=== PATIENT | male | born 1950 | race Caucasian/White ===

== ENCOUNTER 2017-10-06 17:44 | Inpatient (IN) | payer MEDICARE, MEDICAID ==
--- NOTE | 2017-10-06 18:22 | ED Physician Chart ---
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 Pain, A/N/V/D/C, chills, or urinary s/s Allergies:: Allergies Allergy/AdvReac Type Severity Reaction Status Date / Time Penicillins [PCN] Allergy Verified 10/06/17 17:59 Vitals:: Vital Signs - 8 hr 10/06/17 18:00 Temp 100.8 F HR 90 RR 16 BP 115/73 O2 Sat % 96 Historian:: Patient, EMS Review:: Nurse's Note Reviewed, Old Chart Reviewed, EMS run form Reviewed, Transfer documents Reviewed ED Review of Systems - Review of Systems General/Constitutional: Fever, Chills, No weight loss, Weakness, No diaphoresis , No edema, No loss of appetite Skin: No skin lesions, No rash, No bruising Head: No headache, No light-headedness Eyes: No loss of vision, No pain, No diplopia ENT: No earache, Nasal drainage, No sore throat, No tinnitus Neck: No neck pain, No swelling, No thyromegaly, No stiffness, No mass noted Cardio Vascular: No chest pain, No palpitations, No PND, No orthopnea, No edema Pulmonary: No SOB, Cough, No sputum, No wheezing GI: No nausea, No vomiting, No diarrhea, No pain, No melena, No hematochezia, No constipation, No hematemesis G/U: No dysuria, No frequency, No hematuria Musculoskeletal: Bone or joint pain, No back pain, Muscle pain Endocrine: No polyuria, No polydipsia Psychiatric: No prior psych history, No depression, No anxiety, No suicidal ideation, No homicidal ideation, No auditory hallucination, No visual hallucination Hematopoietic: No bruising, No lymphadenopathy Allergic/Immuno: No urticaria, No angioedema Neurological: No syncope, Focal symptoms, Weakness, Paresthesia, Headache, No seizure, No dizziness, Confusion, No vertigo ED Past Medical History - Past Medical History Obtainable: Yes Past Medical History: HTN, DM, Dementia, Other (BPH; HIV) Family History: Diabetes Melitus, HTN Social History: Non Smoker, No Alcohol, No Drug Use, Single, Care Facility Surgical History: other (Ventral Shunt) Psychiatricy History: Dementia Medication: Reviewed ED Physical Exam - Physical Examination General/Constitutional: Awake, Well-developed, well-nourished, Alert, No distress, GCS 15, Non-toxic appearing, Ambulatory Head: Atraumatic Eyes: Lids, conjuctiva normal, PERRL, EOMI Skin: Nl inspection, No rash, No skin lesions, No ecchymosis, Well hydrated, No lymphadenopathy ENMT: External ears, nose nl, TM canals nl, Nasal exam nl, Lips, teeth, gums nl , Oropharynx nl, Tonsils nl Neck: Nontender, Full ROM w/o pain, No JVD, No nuchal rigidity, No bruit, No mass, No stridor Respiratory: Nl effort/Exclusion Other Respiratory comments:: Lungs: + Rales and Rhonchi; R>L Cardio Vascular: RRR, No murmur, gallop, rubs, NL S1 S2, Carotid/Femoral/Distal pulses equal bilaterally GI: No tenderness/rebounding/guarding, No organomegaly, No hernia, Normal BS's, Nondistended, No mass/bruits, No McBurney tenderness : No CVA tenderness Extremities: No tenderness or effusion, Full ROM, normal strength in all extremities, No edema, Normal digits & nails Neuro/Psych: Alert/oriented, DTR's symmetric, Normal sensory exam, Normal motor strength, Judgement/insight normal, Mood normal, Normal gait, No focal deficits Misc: Normal back, No paraspinal tenderness ED Labs/Radiology/EKG Results - Radiology Results Comments:: CXR: RLL Infiltrate ED Septic Shock - . Is Septic Shock (SBP<90, OR Lactate>4 mmol\L) present?: No - <6hrs of presentation: Vital Signs: Vital Signs - 8 hr 10/06/17 18:00 Temp 100.8 F HR 90 RR 16 BP 115/73 O2 Sat % 96 ED Reassessment (Disposition) - Reassessment Reassessment Condition:: Improved - Diagnosis Diagnosis:: Dx: Cough/Congestion; Fever; Pneumonia; Sepsis - Aftercare/Follow up Instructions Aftercare/Follow-Up Instructions:: Counseled pt regarding lab results/diagnosis & need follow up, Counseled pt & family regarding lab results/diagnosis & need follow up - Patient Disposition Discharge/Transfer:: Acute Care w/in this hosp Accepting Physician:: Dr. Cleary Time Called:: 1829 Time Responded:: 18:30 Admitted to:: Med/Surg Spoke to:: Dr. Cleary Admitting Medical Physician:: Dr. Cleary Condition at Disposition:: Stable, Improved
[2017-10-06] MEDS ORDERED: Sodium Chloride 0.9% 1,000 ML IV ONE (18:24)
[2017-10-06] MEDS ORDERED: Levofloxacin 500mg/100mL 500 MG/100 ML BAG IV ONE ×2 (18:32→18:48)
[2017-10-06 18:54] LABS: HEMATOCRIT 26.7 % (41.0-60); MEAN CELL VOLUME 101.8 fl (80-99); MEAN CORPUSCULAR HEMOGLOBIN 34.2 pg (27.0-31.0); MEAN CORPUSCULAR HGB CONC 33.6 pg (28.0-36.0); MEAN PLATELET VOLUME 6.4 fl; PLATELET COUNT 311 Th/cmm (150-400); RED BLOOD COUNT 2.62 Mil/cmm (3.80-5.80); RED CELL DISTRIBUTION WIDTH 16.7 % (11.5-20.0)
[2017-10-06 19:14] LABS: CHOLESTEROL 94 mg/dL (<200); TRIGLYCERIDES 74 mg/dL (<150)
[2017-10-06 19:16] LABS: ALB/GLOB RATIO 0.8 (1.0-1.8); ALKALINE PHOSPHATASE 101 U/L (34-104); ANION GAP 9.2 (7.0-16.0); BILIRUBIN,TOTAL 0.5 mg/dL (0.3-1.0); BUN - UREA NITROGEN 24 mg/dL (7-25); BUN/CREATININE RATIO 26.7; CALCIUM SERUM 8.7 mg/dL (8.6-10.3); CARBON DIOXIDE 26.4 mEq/L (21.0-31.0); CHLORIDE 103 mEq/L (98-107); CREATININE - SERUM 0.9 mg/dL (0.7-1.3); GLUCOSE 130 mg/dL (70-105); POTASSIUM SERUM 3.6 mEq/L (3.5-5.1); SGOT 18 U/L (13-39); SGPT/ALT 31 U/L (7-52); SODIUM SERUM 135 mEq/L (136-145)
[2017-10-06 19:17] LABS: INR 1.04 (0.5-1.4); PROTHROMBIN TIME (TEST) 10.8 SECONDS (9.5-11.5)
[2017-10-06 20:18] LABS: WHITE BLOOD COUNT 13.3 Th/cmm (4.8-10.8)
[2017-10-06 20:21] LABS: BAND NEUTROPHILE 4 % (0-10); BASOPHIL 0 % (0-3); EOSINOPHIL 0 % (0-5); NEUTROPHILS 88 % (40-80); PLATELET ESTIMATE ADEQUATE (NORMAL); PLATELET MORPHOLOGY NORMAL (NORMAL); TOTAL CELLS COUNTED 100
[2017-10-06 22:02] LABS: URINE BILIRUBIN NEGATIVE (NEGATIVE); URINE BLOOD SMALL (NEGATIVE); URINE GLUCOSE (UA) NEGATIVE (NEGATIVE); URINE KETONE NEGATIVE (NEGATIVE); URINE PH 5.5 (4.6 - 8.0); URINE PROTEIN 30 mg/dL (NEGATIVE); URINE UROBILINOGEN 0.2 E.U./dL (0.2 - 1.0)
[2017-10-06 22:14] LABS: URINE COLOR YELLOW
[2017-10-06 22:15] LABS: URINE EPITHELIAL CELLS NONE SEEN /lpf (FEW); URINE RBC 0-2 /hpf (0-5); URINE WBC 0-2 /hpf (0-5)
[2017-10-06 22:16] LABS: URINE BACTERIA FEW /hpf (NONE SEEN)
[2017-10-07 02:41] LABS: ANION GAP 8.6 (7.0-16.0); BUN - UREA NITROGEN 23 mg/dL (7-25); BUN/CREATININE RATIO 28.8; CALCIUM SERUM 8.6 mg/dL (8.6-10.3); CARBON DIOXIDE 25.7 mEq/L (21.0-31.0); CHLORIDE 104 mEq/L (98-107); CREATININE - SERUM 0.8 mg/dL (0.7-1.3); POTASSIUM SERUM 3.3 mEq/L (3.5-5.1); SODIUM SERUM 135 mEq/L (136-145)
[2017-10-07 02:50] LABS: GLUCOSE 96 mg/dL (70-105)
[2017-10-07 03:56] VITALS: BP 117/70
[2017-10-07] MEDS ORDERED: Potassium Chloride 20 mEq ER Tab PO ONE (04:00)
--- NOTE | 2017-10-07 07:10 | Diagnostic Imaging Report ---
Exam: Chest x-ray. HISTORY: Pneumonia. Findings: Frontal positioning chest was reviewed. No prior studies available comparison. Right subclavian catheter terminates in superior vena cava. Mediastinal structures midline the heart is not enlarged. The aortic arch calcified. There is evidence for right lower lobe pneumonia. The costophrenic angles are clear. IMPRESSION: Right-sided pneumonia, follow-up examination recommended.
[2017-10-07 07:30] LABS: HEMATOCRIT 25.2 % (41.0-60); HEMOGLOBIN 8.5 gm/dL (12-16); MEAN CELL VOLUME 101.7 fl (80-99); MEAN CORPUSCULAR HEMOGLOBIN 34.3 pg (27.0-31.0); MEAN CORPUSCULAR HGB CONC 33.8 pg (28.0-36.0); MEAN PLATELET VOLUME 6.1 fl; PLATELET COUNT 312 Th/cmm (150-400); RED BLOOD COUNT 2.48 Mil/cmm (3.80-5.80); RED CELL DISTRIBUTION WIDTH 16.8 % (11.5-20.0)
[2017-10-07 08:10] LABS: BAND NEUTROPHILE 3 % (0-10); EOSINOPHIL 2 % (0-5); NEUTROPHILS 87 % (40-80); TOTAL CELLS COUNTED 100
[2017-10-07] MEDS ORDERED: ABACAVIR SULFATE 600 MG PO SCH (09:00)
[2017-10-07] MEDS ORDERED: AZITHROMYCIN 200 MG/5 ML PO SCH (09:00)
[2017-10-07] MEDS ORDERED: ATOVAQUONE 1500 MG PO SCH (09:00)
[2017-10-07] MEDS ORDERED: DOLUTEGRAVIR SODIUM PO SCH (09:00)
--- NOTE | 2017-10-07 09:03 | Consultation ---
Consult Note - Consult Note Service Date: 10/07/17 Referring Physician: Vinod Cleary Consult Note: PHYSICIAN Consultation Note: Date of Admission: 10/06/17 Purpose of Consultation: pneumonia. Chief Complaint: Patient SADE HINDS was admitted to [facility] Telemetry with PNA, ELEVATED TROPONIN, LEUKOCYTOSIS.. 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 On initial evaluation, his temperature was 100.8 degree F and WBC count was 13,300. He had cxr done here and at outside facility revealed pneumonia. ID consult was called for antibiotic management. He was diagnosed to have pneumonia. and started on Levaquin, ID consult was called for antibiotic management. Past Medical History: HIV, MAC colitis, brain tumor. cachexia. 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 hydrocephalus. Dementia. Allergies Allergy/AdvReac Type Severity Reaction Status Date / Time Penicillins [PCN] Allergy Verified 10/06/17 17:59 Vital Signs Temp 98.6 F 10/07/17 04:00 Pulse 72 10/07/17 05:49 Resp 18 10/07/17 04:00 BP 116/68 10/07/17 05:49 Pulse Ox 100 10/07/17 04:00 Intake & Output 10/06/17 10/07/17 10/07/17 18:59 06:59 18:59 Output Total 550 Balance -550 Weight (lbs) 50.122 kg Output: Urine 550 Other: Stool Characteristics Soft Formed Laboratory Results - last 24 hr 10/07/17 10/07/17 10/07/17 02:04 02:04 07:11 WBC 10.0 D RBC 2.48 L Hgb 8.5 L Hct 25.2 L MCV 101.7 H MCH 34.3 H MCHC Differential 33.8 RDW 16.8 Plt Count 312 MPV 6.1 Band Neutrophils % 3 Neutrophils (Manual) 87 H Lymphocytes 6 L Monocytes 2 Eosinophils 2 Sodium 135 L Potassium 3.3 L Chloride 104 Carbon Dioxide 25.7 Anion Gap 8.6 BUN 23 Creatinine 0.8 Est GFR ( Amer) > 60.0 Est GFR (Non-Af Amer) > 60.0 BUN/Creatinine Ratio 28.8 Glucose 96 D Calcium 8.6 Creatine Kinase 131 Troponin I 0.05 B-Natriuretic Peptide TSH 10/07/17 10/07/17 07:11 07:11 WBC RBC Hgb Hct MCV MCH MCHC Differential RDW Plt Count MPV Band Neutrophils % Neutrophils (Manual) Lymphocytes Monocytes Eosinophils Sodium Potassium Chloride Carbon Dioxide Anion Gap BUN Creatinine Est GFR ( Amer) Est GFR (Non-Af Amer) BUN/Creatinine Ratio Glucose Calcium Creatine Kinase Troponin I B-Natriuretic Peptide 215.0 H TSH 1.17 Home Medication Medication Instructions Recorded Type Abacavir Sulfate [Abacavir] 600 mg PO DAILY 10/06/17 History Acetaminophen 650 mg PO Q6H PRN 10/06/17 History Atovaquone 1,500 mg PO DAILY 10/06/17 History Azithromycin 600 mg PO DAILY 10/06/17 History Dolutegravir Sodium [Tivicay] 1 tab PO DAILY 10/06/17 History Finasteride [Proscar*] 1 tab PO DAILY 10/06/17 History Hydralazine [Apresoline*] 1 tab PO Q8H 10/06/17 History Lamivudine [Epivir] 150 mg PO DAILY 10/06/17 History Losartan Potassium [Cozaar] 75 mg PO BID 10/06/17 History Pantoprazole [Protonix] 40 mg PO DAILY 10/06/17 History Sucralfate [Carafate] 1 gm PO QID 10/06/17 History Current Medications Generic Name Dose Route Start Last Admin Trade Name Freq PRN Reason Stop Dose Admin Acetaminophen 650 mg 10/06/17 22:32 Tylenol PO 12/05/17 22:31 Q6H PRN fever/pain Azithromycin 600 mg 10/07/17 09:00 Zithromax 200mg/5ml Susp PO 12/06/17 08:59 DAILY [facility] Finasteride 5 mg 10/07/17 09:00 Proscar PO 12/06/17 08:59 DAILY [facility] Protocol Hydralazine HCl 25 mg 10/06/17 22:32 10/07/17 05:49 Apresoline PO 12/05/17 22:31 Not Given Q8HR [facility] Levofloxacin 500 mg in 100 mls @ 100 mls/hr 10/07/17 18:00 Levaquin Pb IV 12/06/17 17:59 Q24HR [facility] Losartan Potassium 75 mg 10/07/17 09:00 Cozaar PO 12/06/17 08:59 BID [facility] Miscellaneous 600 mg 10/07/17 09:00 Abacavir Sulfate [Abacavir] PO 12/06/17 08:59 DAILY [facility] Miscellaneous 1,500 mg 10/07/17 09:00 Atovaquone [Atovaquone] PO 12/06/17 08:59 DAILY [facility] Miscellaneous 1 tab 10/07/17 09:00 Dolutegravir Sodium [Tivicay] PO 12/06/17 08:59 DAILY [facility] Miscellaneous 150 mg 10/07/17 09:00 Lamivudine [Epivir] PO 12/06/17 08:59 DAILY [facility] Pantoprazole Sodium 40 mg 10/07/17 09:00 Protonix PO 12/06/17 08:59 DAILY [facility] Sucralfate 1 gm 10/07/17 09:00 Carafate PO 12/06/17 08:59 QID [facility] Review of Systems: A 12 point ROS was reviewed with the pertinent positive and negatives noted in the HPI. Social History Smoking Status Smoker, status unknown Drug Use No Alcohol Use No Family Medical History Family Medical History Start: 10/06/17 21: 50 Freq: ONCE Status: Active Document 10/06/17 21:50 YASMIN (Rec: 10/07/17 07:01 YASMIN [id number]) Family Medical History Daughter History Unknown Yes Physical Exam: General: cachectic, not in any distress. HEENT: Head normocephalic, bitemporal wasting. oral cavity: moist pink tongue, no thrush, eyes pallor is present. no icterus. Pupil PERRLA. EOMI. Neck: supple no JVD, no carotid bruit. Cardio: S1 and S2 WNL. no murmur, Respiratory: Vesicular breath sounds, no crackles,no wheezing. Abdominal: Soft NT ND BS present. Genital/Urinary: deferred. Extremities: NCCE Neurological: obtunded. Assessment: 1. Sepsis. 2. Pneumpnia, RLL. 3. HIV advanced. 4. MAC colitis. 5. cerebral mass and hydrocephalus. 6. S/P VETERINARY ASSISTANT shunt. 7. DM2. Plan: Continue ART, Abacavir, Lamivudine and Dolutegravir. Start bactrim iv and continue Levaquin and Zithromax. sepsis w/u. May transfer to [facility]. Thank you, Dr Cleary for involving me in taking care of this patient. Signed, Juan Maldonado M.D. [id number]
[2017-10-07] MEDS: Pantoprazole 40 mg EC Tab PO SCH (09:11)
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
--- NOTE | 2017-10-07 10:12 | General Progress Note ---
Subjective - Review of Systems Events since last encounter: patient in no acute distres awake ,alert c/o cough +sob Objective - Results Result Diagrams: 10/07/17 07:11 10/07/17 02:04 Recent Labs: Laboratory Last Values WBC 10.0 Th/cmm (4.8-10.8) D 10/07/17 07:11 RBC 2.48 Mil/cmm (3.80-5.80) L 10/07/17 07:11 Hgb 8.5 gm/dL (12-16) L 10/07/17 07:11 Hct 25.2 % (41.0-60) L 10/07/17 07:11 MCV 101.7 fl (80-99) H 10/07/17 07:11 MCH 34.3 pg (27.0-31.0) H 10/07/17 07:11 MCHC Differential 33.8 pg (28.0-36.0) 10/07/17 07:11 RDW 16.8 % (11.5-20.0) 10/07/17 07:11 Plt Count 312 Th/cmm (150-400) 10/07/17 07:11 MPV 6.1 fl 10/07/17 07:11 Band Neutrophils % 3 % (0-10) 10/07/17 07:11 Neutrophils (Manual) 87 % (40-80) H 10/07/17 07:11 Lymphocytes 6 % (20-50) L 10/07/17 07:11 Monocytes 2 % (2-10) 10/07/17 07:11 Eosinophils 2 % (0-5) 10/07/17 07:11 Basophils 0 % (0-3) 10/06/17 18:47 Platelet Estimate ADEQUATE (NORMAL) 10/06/17 18:47 Platelet Morphology NORMAL (NORMAL) 10/06/17 18:47 RBC Morph Micro Appear NORMAL (NORMAL) 10/06/17 18:47 PT 10.8 SECONDS (9.5-11.5) 10/06/17 18:47 INR 1.04 (0.5-1.4) 10/06/17 18:47 Sodium 135 mEq/L (136-145) L 10/07/17 02:04 Potassium 3.3 mEq/L (3.5-5.1) L 10/07/17 02:04 Chloride 104 mEq/L (98-107) 10/07/17 02:04 Carbon Dioxide 25.7 mEq/L (21.0-31.0) 10/07/17 02:04 Anion Gap 8.6 (7.0-16.0) 10/07/17 02:04 BUN 23 mg/dL (7-25) 10/07/17 02:04 Creatinine 0.8 mg/dL (0.7-1.3) 10/07/17 02:04 Est GFR ( Amer) > 60.0 ml/min (>90) 10/07/17 02:04 Est GFR (Non-Af Amer) > 60.0 ml/min 10/07/17 02:04 BUN/Creatinine Ratio 28.8 10/07/17 02:04 Glucose 96 mg/dL (70-105) D 10/07/17 02:04 Whole Bld Lactic Acid 0.98 mmol/L (0.60-1.99) 10/06/17 18:47 Calcium 8.6 mg/dL (8.6-10.3) 10/07/17 02:04 Total Bilirubin 0.5 mg/dL (0.3-1.0) 10/06/17 18:47 AST 18 U/L (13-39) 10/06/17 18:47 ALT 31 U/L (7-52) 10/06/17 18:47 Alkaline Phosphatase 101 U/L (34-104) 10/06/17 18:47 Creatine Kinase 131 U/L (30-223) 10/07/17 02:04 Troponin I 0.05 ng/mL (0.01-0.05) 10/07/17 02:04 B-Natriuretic Peptide 215.0 pg/mL (5.0-100.0) H 10/07/17 07:11 Total Protein 5.8 gm/dL (6.0-8.3) L 10/06/17 18:47 Albumin 2.5 gm/dL (4.2-5.5) L 10/06/17 18:47 Globulin 3.3 gm/dL 10/06/17 18:47 Albumin/Globulin Ratio 0.8 (1.0-1.8) L 10/06/17 18:47 Triglycerides 74 mg/dL (<150) 10/06/17 18:47 Cholesterol 94 mg/dL (<200) 10/06/17 18:47 LDL Cholesterol Direct 56 mg/dL (75-193) L 10/06/17 18:47 HDL Cholesterol 29 mg/dL (23-92) 10/06/17 18:47 TSH 1.17 uIU/ml (0.34-5.60) 10/07/17 07:11 Urine Source CATH 10/06/17 18:00 Urine Color YELLOW 10/06/17 18:00 Urine Clarity CLEAR (CLEAR) 10/06/17 18:00 Urine pH 5.5 (4.6 - 8.0) 10/06/17 18:00 Ur Specific [place] [facility] 1.025 (1.005-1.030) 10/06/17 18:00 Urine Protein 30 mg/dL (NEGATIVE) H 10/06/17 18:00 Urine Glucose (UA) NEGATIVE mg/dL (NEGATIVE) 10/06/17 18:00 Urine Ketones NEGATIVE mg/dL (NEGATIVE) 10/06/17 18:00 Urine Blood SMALL (NEGATIVE) H 10/06/17 18:00 Urine Nitrate NEGATIVE (NEGATIVE) 10/06/17 18:00 Urine Bilirubin NEGATIVE (NEGATIVE) 10/06/17 18:00 Urine Urobilinogen 0.2 E.U./dL (0.2 - 1.0) 10/06/17 18:00 Ur Leukocyte Esterase NEGATIVE (NEGATIVE) 10/06/17 18:00 Urine RBC 0-2 /hpf (0-5) H 10/06/17 18:00 Urine WBC 0-2 /hpf (0-5) 10/06/17 18:00 Ur Epithelial Cells NONE SEEN /lpf (FEW) 10/06/17 18:00 Urine Bacteria FEW /hpf (NONE SEEN) 10/06/17 18:00 HIV 1&2 Antibody Screen POSITIVE (NEG) H 10/07/17 07:11 - Physical Exam Vitals and I&O: Vital Signs Temp 98.6 F 10/07/17 04:00 Pulse 70 10/07/17 09:11 Resp 18 10/07/17 04:00 BP 119/70 10/07/17 09:11 Pulse Ox 100 10/07/17 04:00 Intake & Output 10/06/17 10/07/17 10/07/17 18:59 06:59 18:59 Output Total 550 Balance -550 Weight (lbs) 50.122 kg Output: Urine 550 Other: Stool Characteristics Soft Formed Active Medications: Current Medications Acetaminophen (Tylenol) 650 mg PO Q6H PRN PRN Reason: fever/pain Stop: 12/05/17 22:31 Azithromycin (Zithromax 200mg/5ml Susp) 600 mg PO DAILY [facility] Stop: 12/07/17 08:59 Finasteride (Proscar) 5 mg PO DAILY [facility] PRN Reason: Protocol Stop: 12/06/17 08:59 Last Admin: 10/07/17 09:12 Dose: 5 mg Hydralazine HCl (Apresoline) 25 mg PO Q8HR [facility] Stop: 12/05/17 22:31 Last Admin: 10/07/17 05:49 Dose: Not Given Levofloxacin (Levaquin Pb) 500 mg in 100 mls @ 100 mls/hr IV Q24HR [facility] Stop: 12/06/17 17:59 Losartan Potassium (Cozaar) 75 mg PO BID [facility] Stop: 12/06/17 08:59 Last Admin: 10/07/17 09:11 Dose: 75 mg Miscellaneous (Abacavir Sulfate [Abacavir]) 600 mg PO DAILY [facility] Stop: 12/06/17 08:59 Miscellaneous (Atovaquone [Atovaquone]) 1,500 mg PO DAILY [facility] Stop: 12/06/17 08:59 Miscellaneous (Dolutegravir Sodium [Tivicay]) 1 tab PO DAILY [facility] Stop: 12/06/17 08:59 Miscellaneous (Lamivudine [Epivir]) 150 mg PO DAILY [facility] Stop: 12/06/17 08:59 Miscellaneous (Non-Formulary Item) 1 ea PO DAILY [facility] Stop: 12/07/17 08:59 Miscellaneous (Non-Formulary Item) 1 ea PO DAILY [facility] Stop: 12/07/17 08:59 Pantoprazole Sodium (Protonix) 40 mg PO DAILY [facility] Stop: 12/06/17 08:59 Last Admin: 10/07/17 09:11 Dose: 40 mg Sucralfate (Carafate) 1 gm PO QID [facility] Stop: 12/06/17 08:59 Last Admin: 10/07/17 09:11 Dose: 1 gm Trimethoprim/Sulfamethoxazole (Bactrim Ds) 2 tab PO TID [facility] Stop: 12/06/17 09:14 - Procedures Procedures: Procedures Procedure Code Date ARTERIAL BLD GAS MEASURE 89.65 03/18/95 ELECTROCARDIOGRAM 89.52 03/18/95 NEBULIZER THERAPY 93.94 03/18/95 OXYGEN ENRICHMENT NEC 93.96 03/18/95 Assessment/Plan - Problem List Patient Problems: All Active Problems COUGH WITH CONGESTION AND FEVER (Acute)
--- NOTE | 2017-10-07 11:21 | Diagnostic Imaging Report ---
CT scan of the brain without intravenous contrast HISTORY: Mass. Total DLP equals 628 CTDI equals 32.8 Axial sections were obtained from the base of the skull to the vertex. The exam demonstrates ventricular shunt tubing traversing the right frontal region of the brain. The tip is near the region of the foramen of Bettencourt. There is an asymmetric decrease in size of the right lateral ventricle particularly the region of the frontal horn. Abnormal heterogeneous somewhat complex focus noted within the region of the vermis along the upper most portion of the cerebellum. Generalized hyperdensity noted along the tentorium that may be associated with calcification. There is obscuration of the margins of the fourth ventricle. In view the patient's history, neoplastic involvement cannot be excluded. Generalized enlargement of cerebral sulci and subarachnoid cisterns reflecting atrophy. IMPRESSION: 1. Abnormal changes/density involving the vermis along the upper portion of the cerebellum. Obscuration of the margins of the fourth ventricle. In view of the patient's history, neoplastic involvement cannot be excluded. If possible, comparison with prior CT or MRI exam is would be most helpful. Otherwise, a follow-up MRI exam with and without intravenous contrast would provide additional characterization. 2. Ventricular shunt tubing as described above associated with asymmetric decrease in size of the right lateral ventricle.
[2017-10-07] MEDS: Sulfamethoxazole/TMP 800/160mg Tab PO SCH ×3 (14:22→20:53)
--- NOTE | 2017-10-07 15:55 | Cardiology ---
10/07/[address] Cleary. PROCEDURE: Echocardiogram. M-MODE ECHOCARDIOGRAM: Mitral valve, anterior leaflet of mitral valve shows normal excursion, EF velocity. Posterior leaflet of mitral valve shows normal excursion. Left ventricular posterior wall shows increased thickness, normal excursion. Interventricular septum shows increased thickness, normal excursion, hypertrophy of the left ventricle, ejection fraction 55%. Left atrium normal. Aortic root shows normal dimension, normal excursion of aortic leaflets. CONCLUSION: Hypertrophy of the left ventricle, ejection fraction 55%. 2D ECHO: Long axis view showed normal sized left ventricle with hypertrophy of the left ventricle. Left atrium normal. Aortic root shows normal dimension, normal excursion of aortic leaflets. Short axis view of mitral valve normal. Short axis view of aortic valve normal. Apical four chamber view showed normal sized left ventricle with hypertrophy of the left ventricle. Left atrium normal. Right ventricular cavity, right atrium normal, no pericardial effusion. CONCLUSION: Hypertrophy of the left ventricle, ejection fraction 55%. Doppler study shows prominent A wave consistent with poor compliance of left ventricle. Trace tricuspid regurgitation. [facility]# [id number]
[2017-10-07] MEDS: Levofloxacin 500mg/100mL 500 MG/100 ML BAG IV SCH (17:06)
[2017-10-07] MEDS ORDERED: KCL 20mEq/100mL Premix 20 MEQ/100 ML PIGGYBACK IV ONE (19:00)
--- NOTE | 2017-10-08 02:22 | Consultation ---
DATE OF CONSULTATION: 10/07/[address] Cleary. HISTORY AND PHYSICAL: This 66-year-old male patient with a known history of HIV CD4 count 34, was admitted because of weakness, tiredness, poor appetite, congestion. In the Emergency Room, the patient had temperature of 100.8 with pneumonia and the patient is admitted. The patient also had slightly elevated BNP level and hence Cardiology consult is requested. PAST MEDICAL HISTORY: Right lower lobe pneumonia; HIV; colitis; brain mass most likely malignancy; W[employer] shunt for normal pressure hydrocephalus; diabetes mellitus type 2; sacral decubitus ulcer, stage 3; hypertension; BPH; dementia. FAMILY HISTORY: Unremarkable. SOCIAL HISTORY: No history of smoking, alcohol abuse. ALLERGIES: No known allergies. PHYSICAL EXAMINATION: VITAL SIGNS: Blood pressure 130/80, pulse 80, respirations 20. HEAD: Normocephalic. No lumps or bumps. EYES: Pupils equal, reactive to light. Fundi show AV nicking, sclerae white, conjunctivae pink. NECK: Carotid 2+. Normal upstroke. JVD flat. Thyroid not palpable. Lymph nodes not palpable. CHEST: Shows increased AP diameter. No kyphosis, scoliosis. LUNGS: Bilateral breath sounds. HEART: PMI fifth intercostal space with lateral to midclavicular line. S1, S2. No S3, S4, soft systolic murmur. ABDOMEN: Soft. Liver, spleen not palpable. No organomegaly. Bowel sounds active. NEUROLOGIC: Unremarkable. EXTREMITIES: Peripheral pulses 2+. No pedal edema. CLINICAL IMPRESSION: Right lower lobe pneumonia; human immunodeficiency virus CD34; colitis; brain mass, most likely malignant tumor; mild congestive heart failure; BNP 215; diabetes mellitus type 2; normal pressure hydrocephalus; sacral decubitus ulcer, stage 3; hypertension, benign prostatic hypertrophy; dementia. PLAN: We will continue patient on antibiotic. Give a dose of Lasix and echocardiogram showed ejection fraction 50%, trace mitral regurgitation, hypertrophy of the left ventricle. JOB# [id number]
[2017-10-08] MEDS: Pantoprazole 40 mg EC Tab PO SCH (08:37)
[2017-10-08] MEDS: Sulfamethoxazole/TMP 800/160mg Tab PO SCH ×3 (08:37→21:05)
[2017-10-08] MEDS: Levofloxacin 500mg/100mL 500 MG/100 ML BAG IV SCH (17:33)
[2017-10-09 05:44] LABS: MEAN CORPUSCULAR HEMOGLOBIN 33.7 pg (27.0-31.0); MEAN CORPUSCULAR HGB CONC 33.4 pg (28.0-36.0); MEAN PLATELET VOLUME 6.8 fl; RED BLOOD COUNT 2.37 Mil/cmm (3.80-5.80); RED CELL DISTRIBUTION WIDTH 16.9 % (11.5-20.0)
[2017-10-09 05:54] LABS: ALB/GLOB RATIO 0.7 (1.0-1.8); ALKALINE PHOSPHATASE 74 U/L (34-104); ANION GAP 9.1 (7.0-16.0); BILIRUBIN,TOTAL 0.3 mg/dL (0.3-1.0); BUN - UREA NITROGEN 31 mg/dL (7-25); CALCIUM SERUM 8.8 mg/dL (8.6-10.3); CARBON DIOXIDE 24.6 mEq/L (21.0-31.0); CHLORIDE 107 mEq/L (98-107); GLUCOSE 84 mg/dL (70-105); POTASSIUM SERUM 3.7 mEq/L (3.5-5.1); SGOT 13 U/L (13-39); SGPT/ALT 22 U/L (7-52); SODIUM SERUM 137 mEq/L (136-145)
[2017-10-09 06:10] LABS: PLATELET COUNT 239 Th/cmm (150-400)
[2017-10-09 06:49] LABS: BAND NEUTROPHILE 7 % (0-10); NEUTROPHILS 86 % (40-80); TOTAL CELLS COUNTED 100
[2017-10-09] MEDS ORDERED: ABACAVIR 300 MG PO SCH (09:00)
[2017-10-09] MEDS ORDERED: ATOVAQUONE 750 MG/5 ML PO SCH (09:00)
[2017-10-09] MEDS: [UNRECOGNIZED DRUG - OTHER] PO SCH (09:08)
[2017-10-09] MEDS: Pantoprazole 40 mg EC Tab PO SCH (09:08)
[2017-10-09] MEDS: ABACAVIR PO SCH (09:08)
[2017-10-09] MEDS: Sulfamethoxazole/TMP 800/160mg Tab PO SCH ×3 (09:09→21:57)
--- NOTE | 2017-10-09 10:30 | Internal Medicine Prog Note ---
Internal Medicine Subjective - Subjective Service Date: 10/09/17 Patient seen and examined:: with staff Patient is:: awake Per staff patient has:: no adverse event Internal Medicine Objective - Results Result Diagrams: 10/09/17 05:15 10/09/17 05:15 Recent Labs: Laboratory Last Values WBC 10.0 Th/cmm (4.8-10.8) 10/09/17 05:15 RBC 2.37 Mil/cmm (3.80-5.80) L 10/09/17 05:15 Hgb 8.0 gm/dL (12-16) L 10/09/17 05:15 Hct 24.0 % (41.0-60) L 10/09/17 05:15 MCV 101.0 fl (80-99) H 10/09/17 05:15 MCH 33.7 pg (27.0-31.0) H 10/09/17 05:15 MCHC Differential 33.4 pg (28.0-36.0) 10/09/17 05:15 RDW 16.9 % (11.5-20.0) 10/09/17 05:15 Plt Count 239 Th/cmm (150-400) D 10/09/17 05:15 MPV 6.8 fl 10/09/17 05:15 Band Neutrophils % 7 % (0-10) 10/09/17 05:15 Neutrophils (Manual) 86 % (40-80) H 10/09/17 05:15 Lymphocytes 6 % (20-50) L 10/09/17 05:15 Monocytes 1 % (2-10) L 10/09/17 05:15 Eosinophils 2 % (0-5) 10/07/17 07:11 Basophils 0 % (0-3) 10/06/17 18:47 Platelet Estimate ADEQUATE (NORMAL) 10/06/17 18:47 Platelet Morphology NORMAL (NORMAL) 10/06/17 18:47 RBC Morph Micro Appear NORMAL (NORMAL) 10/06/17 18:47 PT 10.8 SECONDS (9.5-11.5) 10/06/17 18:47 INR 1.04 (0.5-1.4) 10/06/17 18:47 Sodium 137 mEq/L (136-145) 10/09/17 05:15 Potassium 3.7 mEq/L (3.5-5.1) 10/09/17 05:15 Chloride 107 mEq/L (98-107) 10/09/17 05:15 Carbon Dioxide 24.6 mEq/L (21.0-31.0) 10/09/17 05:15 Anion Gap 9.1 (7.0-16.0) 10/09/17 05:15 BUN 31 mg/dL (7-25) H 10/09/17 05:15 Creatinine 1.0 mg/dL (0.7-1.3) 10/09/17 05:15 Est GFR ( Amer) > 60.0 ml/min (>90) 10/09/17 05:15 Est GFR (Non-Af Amer) > 60.0 ml/min 10/09/17 05:15 BUN/Creatinine Ratio 31.0 10/09/17 05:15 Glucose 84 mg/dL (70-105) 10/09/17 05:15 Whole Bld Lactic Acid 0.98 mmol/L (0.60-1.99) 10/06/17 18:47 Calcium 8.8 mg/dL (8.6-10.3) 10/09/17 05:15 Total Bilirubin 0.3 mg/dL (0.3-1.0) 10/09/17 05:15 AST 13 U/L (13-39) 10/09/17 05:15 ALT 22 U/L (7-52) 10/09/17 05:15 Alkaline Phosphatase 74 U/L (34-104) 10/09/17 05:15 Lactate Dehydrogenase 170 U/L (140-271) 10/07/17 07:11 Creatine Kinase 119 U/L (30-223) 10/07/17 10:00 Troponin I 0.04 ng/mL (0.01-0.05) 10/07/17 10:00 B-Natriuretic Peptide 215.0 pg/mL (5.0-100.0) H 10/07/17 07:11 Total Protein 5.6 gm/dL (6.0-8.3) L 10/09/17 05:15 Albumin 2.2 gm/dL (4.2-5.5) L 10/09/17 05:15 Globulin 3.4 gm/dL 10/09/17 05:15 Albumin/Globulin Ratio 0.7 (1.0-1.8) L 10/09/17 05:15 Triglycerides 74 mg/dL (<150) 10/06/17 18:47 Cholesterol 94 mg/dL (<200) 10/06/17 18:47 LDL Cholesterol Direct 56 mg/dL (75-193) L 10/06/17 18:47 HDL Cholesterol 29 mg/dL (23-92) 10/06/17 18:47 TSH 1.17 uIU/ml (0.34-5.60) 10/07/17 07:11 Urine Source CATH 10/06/17 18:00 Urine Color YELLOW 10/06/17 18:00 Urine Clarity CLEAR (CLEAR) 10/06/17 18:00 Urine pH 5.5 (4.6 - 8.0) 10/06/17 18:00 Ur Specific [place] 1.025 (1.005-1.030) 10/06/17 18:00 Urine Protein 30 mg/dL (NEGATIVE) H 10/06/17 18:00 Urine Glucose (UA) NEGATIVE mg/dL (NEGATIVE) 10/06/17 18:00 Urine Ketones NEGATIVE mg/dL (NEGATIVE) 10/06/17 18:00 Urine Blood SMALL (NEGATIVE) H 10/06/17 18:00 Urine Nitrate NEGATIVE (NEGATIVE) 10/06/17 18:00 Urine Bilirubin NEGATIVE (NEGATIVE) 10/06/17 18:00 Urine Urobilinogen 0.2 E.U./dL (0.2 - 1.0) 10/06/17 18:00 Ur Leukocyte Esterase NEGATIVE (NEGATIVE) 10/06/17 18:00 Urine RBC 0-2 /hpf (0-5) H 10/06/17 18:00 Urine WBC 0-2 /hpf (0-5) 10/06/17 18:00 Ur Epithelial Cells NONE SEEN /lpf (FEW) 10/06/17 18:00 Urine Bacteria FEW /hpf (NONE SEEN) 10/06/17 18:00 HIV 1&2 Antibody Screen POSITIVE (NEG) H 10/07/17 07:11 - Physical Exam Vitals and I&O: Vital Signs Temp 97.2 F 10/09/17 07:00 Pulse 80 10/09/17 09:07 Resp 18 10/09/17 07:58 BP 131/68 10/09/17 09:07 Pulse Ox 95 10/09/17 07:58 Intake & Output 10/08/17 10/09/17 10/09/17 18:59 06:59 18:59 Intake Total 120 Output Total 200 Balance -80 Weight (lbs) 100 lb Intake: Oral 120 Output: Urine 200 Other: Stool Characteristics Soft Formed Active Medications: Current Medications Acetaminophen (Tylenol) 650 mg PO Q6H PRN PRN Reason: fever/pain Stop: 12/05/17 22:31 Azithromycin (Zithromax) 625 mg PO DAILY [facility] Stop: 12/07/17 08:59 Last Admin: 10/09/17 09:19 Dose: Not Given Finasteride (Proscar) 5 mg PO DAILY [facility] PRN Reason: Protocol Stop: 12/06/17 08:59 Last Admin: 10/09/17 09:08 Dose: 5 mg Hydralazine HCl (Apresoline) 25 mg PO Q8HR [facility] Stop: 12/05/17 22:31 Last Admin: 10/09/17 05:33 Dose: Not Given Levofloxacin (Levaquin Pb) 500 mg in 100 mls @ 100 mls/hr IV Q24HR [facility] Stop: 12/06/17 17:59 Last Admin: 10/08/17 17:33 Dose: 100 mls/hr Losartan Potassium (Cozaar) 75 mg PO BID [facility] Stop: 12/06/17 08:59 Last Admin: 10/09/17 09:07 Dose: 75 mg Miscellaneous (Dolutegravir Sodium [Tivicay]) 1 tab PO DAILY [facility] Stop: 12/06/17 08:59 Miscellaneous (Lamivudine [Epivir]) 150 mg PO DAILY [facility] Stop: 12/06/17 08:59 Pantoprazole Sodium (Protonix) 40 mg PO DAILY [facility] Stop: 12/06/17 08:59 Last Admin: 10/09/17 09:08 Dose: 40 mg Patient Own Med ( Atovaquone 750mg/5ml ) 1,500 PO DAILY [facility] Stop: 12/08/17 08:59 Last Admin: 10/09/17 09:08 Dose: 1,500 Patient Own Med ( Abacavir/Ziagen - 300mg/Tab) 2 PO DAILY [facility] Stop: 12/08/17 08:59 Last Admin: 10/09/17 09:08 Dose: 2 Sucralfate (Carafate) 1 gm PO QID [facility] Stop: 12/06/17 08:59 Last Admin: 10/09/17 09:08 Dose: 1 gm Trimethoprim/Sulfamethoxazole (Bactrim Ds) 2 tab PO TID [facility] Stop: 12/06/17 09:14 Last Admin: 10/09/17 09:09 Dose: 2 tab General: alert HEENT: NC/AT, PERRLA Neck: Supple Lungs: CTAB Cardiovascular: RRR, Normal S1, Normal S2, without murmur Abdomen: soft, non-tender, non-distended, positive bowel sound Neurological: no change - Procedures Procedures: Procedures Procedure Code Date ARTERIAL BLD GAS MEASURE 89.65 03/18/95 ELECTROCARDIOGRAM 89.52 03/18/95 NEBULIZER THERAPY 93.94 03/18/95 OXYGEN ENRICHMENT NEC 93.96 03/18/95 Internal Medicine Assmt/Plan - Assessment Assessment: COUGH WITH CONGESTION AND FEVER (Acute) - Plan Plan: continue abx bronchodilators as needed anti-tussive supplemental oxygen continue current plan of care Nutritional Asmnt/Malnutr-PDOC - Dietary Evaluation Malnutrition Findings (Please click <Entered> for more info): Nutritional Asmnt/Malnutrition Start: 10/07/17 12: 37 Text: Status: Complete Freq: Document 10/07/17 12:37 [email or web address] (Rec: 10/07/17 12:50 LCHENG [email or web address]) Nutritional Asmnt/Malnutrition Patient General Information Nutritional Screening High Risk Consult Diagnosis PNA, elevated troponin, leukocytosis Pertinent Medical Hx/Surgical Hx HTN, DM, dementia, BPH, HIV Subjective Information Consult received for low dian score. Pt seen awake, not able to talk during the time of visit. CONTINUOUS MINER was feeding pt lunch. Pt appeared not able to chew regular texture food. RN Florinda recommend purreed diet and will change the diet order. Per RN, pt only had few cream of wheat this morning. pt has teeth noted, appeared mild mucle wasting on chest. Current Diet Order/ Nutrition Support low sodium 2gm Pertinent Medications levauin Pertinent Labs 10/07 Na 135L, K 3.3, Glu 96 10/06 Na 135L, Glu 130H, Alb 2 .5L Nutritional Hx/Data Height 5 ft 6 in Height (Calculated Centimeters) 167.6 Current Weight (lbs) 110 lb 8 oz Weight (Calculated Kilograms) 50.1 Weight (Calculated Grams) 58691.0 [place] Body Weight 148 % [place] Body Weight 75 Body Mass Index (BMI) 17.8 Weight Status Underweight GI Symptoms GI Symptoms None Last BM 10/07 Difficult in: Chewing Usual diet at home not able to obtain Skin Integrity/Comment: pressured area on coccyx, skin loose, dry and blackened Estimated Nutritional Goals BEE in Kcals: Using Current wt Calories/Kcals/Kg 35-40 Kcals Calculated 5589-5258 Protein: Using Current wt Protein g/k.5 Protein Calculated 75 Fluid: ml 6703-2363 Nutritional Problem 2. Problem Problem increased nutrition needs ( calorie and protein0 Etiology increased metabolic demand Signs/Symptoms: dx of HIV, PNA 1. Problem Problem chewing difficulty Etiology ?weakness, ?mental status Signs/Symptoms: not able chewing regular texture food and possible need for pureed diet Malnutrition Alert Protein-Calorie Malnutrition N/A Is there a minimum of two criteria No selected? Query Text:Check all the applicable criteria. A minimum of two criteria are recommended for diagnosis of either severe or non-severe malnutrition. Intervention/Recommendation Comments 1. Recommend pureed [place] diet d /t chewing difficulty. RN will modify diet order. 2. Monitor PO intake, wt weekly, skin integrity and labs 3. If PO intake continue to be low, will consider nutrition supplements to increase calorie and protein intake 4. F/U as high risk in 2-3 days, 10/09-10/10 Expected Outcomes/Goals Expected Outcomes/Goals 1. Pt will tolerated pureed diet and PO intake at least 50 % 2. wt stability, skin to remain intact, labs to improve
[2017-10-09] MEDS ORDERED: Probiotic Screen MC PRN (11:06)
[2017-10-09 14:58] LABS: HIV1 Multispot SEE REF. LAB REPORT
--- NOTE | 2017-10-09 15:02 | Infectious Disease Prog Note ---
Infectious Disease Subjective - Review of Systems Service Date: 10/09/17 Subjective: No change, no fever. Infectious Disease Objective - Results Result Diagrams: 10/09/17 05:15 10/09/17 05:15 Recent Labs: Laboratory Last Values WBC 10.0 Th/cmm (4.8-10.8) 10/09/17 05:15 RBC 2.37 Mil/cmm (3.80-5.80) L 10/09/17 05:15 Hgb 8.0 gm/dL (12-16) L 10/09/17 05:15 Hct 24.0 % (41.0-60) L 10/09/17 05:15 MCV 101.0 fl (80-99) H 10/09/17 05:15 MCH 33.7 pg (27.0-31.0) H 10/09/17 05:15 MCHC Differential 33.4 pg (28.0-36.0) 10/09/17 05:15 RDW 16.9 % (11.5-20.0) 10/09/17 05:15 Plt Count 239 Th/cmm (150-400) D 10/09/17 05:15 MPV 6.8 fl 10/09/17 05:15 Band Neutrophils % 7 % (0-10) 10/09/17 05:15 Neutrophils (Manual) 86 % (40-80) H 10/09/17 05:15 Lymphocytes 6 % (20-50) L 10/09/17 05:15 Monocytes 1 % (2-10) L 10/09/17 05:15 Eosinophils 2 % (0-5) 10/07/17 07:11 Basophils 0 % (0-3) 10/06/17 18:47 Platelet Estimate ADEQUATE (NORMAL) 10/06/17 18:47 Platelet Morphology NORMAL (NORMAL) 10/06/17 18:47 RBC Morph Micro Appear NORMAL (NORMAL) 10/06/17 18:47 PT 10.8 SECONDS (9.5-11.5) 10/06/17 18:47 INR 1.04 (0.5-1.4) 10/06/17 18:47 Sodium 137 mEq/L (136-145) 10/09/17 05:15 Potassium 3.7 mEq/L (3.5-5.1) 10/09/17 05:15 Chloride 107 mEq/L (98-107) 10/09/17 05:15 Carbon Dioxide 24.6 mEq/L (21.0-31.0) 10/09/17 05:15 Anion Gap 9.1 (7.0-16.0) 10/09/17 05:15 BUN 31 mg/dL (7-25) H 10/09/17 05:15 Creatinine 1.0 mg/dL (0.7-1.3) 10/09/17 05:15 Est GFR ( Amer) > 60.0 ml/min (>90) 10/09/17 05:15 Est GFR (Non-Af Amer) > 60.0 ml/min 10/09/17 05:15 BUN/Creatinine Ratio 31.0 10/09/17 05:15 Glucose 84 mg/dL (70-105) 10/09/17 05:15 Whole Bld Lactic Acid 0.98 mmol/L (0.60-1.99) 10/06/17 18:47 Calcium 8.8 mg/dL (8.6-10.3) 10/09/17 05:15 Total Bilirubin 0.3 mg/dL (0.3-1.0) 10/09/17 05:15 AST 13 U/L (13-39) 10/09/17 05:15 ALT 22 U/L (7-52) 10/09/17 05:15 Alkaline Phosphatase 74 U/L (34-104) 10/09/17 05:15 Lactate Dehydrogenase 170 U/L (140-271) 10/07/17 07:11 Creatine Kinase 119 U/L (30-223) 10/07/17 10:00 Troponin I 0.04 ng/mL (0.01-0.05) 10/07/17 10:00 B-Natriuretic Peptide 215.0 pg/mL (5.0-100.0) H 10/07/17 07:11 Total Protein 5.6 gm/dL (6.0-8.3) L 10/09/17 05:15 Albumin 2.2 gm/dL (4.2-5.5) L 10/09/17 05:15 Globulin 3.4 gm/dL 10/09/17 05:15 Albumin/Globulin Ratio 0.7 (1.0-1.8) L 10/09/17 05:15 Triglycerides 74 mg/dL (<150) 10/06/17 18:47 Cholesterol 94 mg/dL (<200) 10/06/17 18:47 LDL Cholesterol Direct 56 mg/dL (75-193) L 10/06/17 18:47 HDL Cholesterol 29 mg/dL (23-92) 10/06/17 18:47 TSH 1.17 uIU/ml (0.34-5.60) 10/07/17 07:11 Urine Source CATH 10/06/17 18:00 Urine Color YELLOW 10/06/17 18:00 Urine Clarity CLEAR (CLEAR) 10/06/17 18:00 Urine pH 5.5 (4.6 - 8.0) 10/06/17 18:00 Ur Specific [place] 1.025 (1.005-1.030) 10/06/17 18:00 Urine Protein 30 mg/dL (NEGATIVE) H 10/06/17 18:00 Urine Glucose (UA) NEGATIVE mg/dL (NEGATIVE) 10/06/17 18:00 Urine Ketones NEGATIVE mg/dL (NEGATIVE) 10/06/17 18:00 Urine Blood SMALL (NEGATIVE) H 10/06/17 18:00 Urine Nitrate NEGATIVE (NEGATIVE) 10/06/17 18:00 Urine Bilirubin NEGATIVE (NEGATIVE) 10/06/17 18:00 Urine Urobilinogen 0.2 E.U./dL (0.2 - 1.0) 10/06/17 18:00 Ur Leukocyte Esterase NEGATIVE (NEGATIVE) 10/06/17 18:00 Urine RBC 0-2 /hpf (0-5) H 10/06/17 18:00 Urine WBC 0-2 /hpf (0-5) 10/06/17 18:00 Ur Epithelial Cells NONE SEEN /lpf (FEW) 10/06/17 18:00 Urine Bacteria FEW /hpf (NONE SEEN) 10/06/17 18:00 Absolute CD4 Count SEE REF. LAB REPORT 10/07/17 10:00 HIV 1&2 Antibody Screen POSITIVE (NEG) H 10/07/17 07:11 HIV (1&2) Ab Confirm SEE REF. LAB REPORT 10/07/17 10:00 - Physical Exam Vitals and I&O: Vital Signs Temp 97.4 F 10/09/17 12:06 Pulse 67 10/09/17 13:37 Resp 18 10/09/17 12:06 BP 134/60 10/09/17 13:37 Pulse Ox 97 10/09/17 12:06 Intake & Output 10/08/17 10/09/17 10/09/17 18:59 06:59 18:59 Intake Total 120 Output Total 200 Balance -80 Weight (lbs) 45.359 kg Intake: Oral 120 Output: Urine 200 Other: Stool Characteristics Soft Formed Active Medications: Current Medications Acetaminophen (Tylenol) 650 mg PO Q6H PRN PRN Reason: fever/pain Stop: 12/05/17 22:31 Azithromycin (Zithromax) 625 mg PO DAILY [facility] Stop: 12/07/17 08:59 Last Admin: 10/09/17 09:19 Dose: Not Given Finasteride (Proscar) 5 mg PO DAILY [facility] PRN Reason: Protocol Stop: 12/06/17 08:59 Last Admin: 10/09/17 09:08 Dose: 5 mg Hydralazine HCl (Apresoline) 25 mg PO Q8HR [facility] Stop: 12/05/17 22:31 Last Admin: 10/09/17 13:37 Dose: 25 mg Levofloxacin (Levaquin Pb) 500 mg in 100 mls @ 100 mls/hr IV Q24HR [facility] Stop: 12/06/17 17:59 Last Admin: 10/08/17 17:33 Dose: 100 mls/hr Losartan Potassium (Cozaar) 75 mg PO BID [facility] Stop: 12/06/17 08:59 Last Admin: 10/09/17 09:07 Dose: 75 mg Miscellaneous (Dolutegravir Sodium [Tivicay]) 1 tab PO DAILY [facility] Stop: 12/06/17 08:59 Miscellaneous (Lamivudine [Epivir]) 150 mg PO DAILY [facility] Stop: 12/06/17 08:59 Miscellaneous (Probiotic Screen) 1 ea MC PRN PRN PRN Reason: PROTOCOL Stop: 12/08/17 11:05 Pantoprazole Sodium (Protonix) 40 mg PO DAILY [facility] Stop: 12/06/17 08:59 Last Admin: 10/09/17 09:08 Dose: 40 mg Patient Own Med ( Atovaquone 750mg/5ml ) 1,500 PO DAILY [facility] Stop: 12/08/17 08:59 Last Admin: 10/09/17 09:08 Dose: 1,500 Patient Own Med ( Abacavir/Ziagen - 300mg/Tab) 2 PO DAILY [facility] Stop: 12/08/17 08:59 Last Admin: 10/09/17 09:08 Dose: 2 Sucralfate (Carafate) 1 gm PO QID [facility] Stop: 12/06/17 08:59 Last Admin: 10/09/17 13:37 Dose: 1 gm Trimethoprim/Sulfamethoxazole (Bactrim Ds) 2 tab PO TID [facility] Stop: 12/06/17 09:14 Last Admin: 10/09/17 13:37 Dose: 2 tab General: no acute distress, well developed, well nourished HEENT: atraumatic, normocephalic, PERRLA Neck: supple, no thyromegaly Cardiovascular: S1S2, regular Lungs: clear to auscultation bilaterally, clear to percussion Abdomen: soft, no tender, no distended, no mass Extremities: no cyanosis, no clubbing, no edema Neurological: awake, other (Unresponsive.) Skin: intact - Procedures Procedures: Procedures Procedure Code Date ARTERIAL BLD GAS MEASURE 89.65 03/18/95 ELECTROCARDIOGRAM 89.52 03/18/95 NEBULIZER THERAPY 93.94 03/18/95 OXYGEN ENRICHMENT NEC 93.96 03/18/95 Infectious Disease Assmt/Plan - Problem List Patient Problems: All Active Problems COUGH WITH CONGESTION AND FEVER (Acute) - Assessment Assessment: 1. Sepsis. 2. Pneumpnia, RLL. 3. HIV advanced. 4. MAC colitis. 5. cerebral mass and hydrocephalus. 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 7. DM2. - Plan Plan: Conitnue antibretroviral, and antibiotics. may transfer to the [facility]. Patient is well known to [facility]. Nutritional Asmnt/Malnutr-PDOC - Dietary Evaluation Malnutrition Findings (Please click <Entered> for more info): Nutritional Asmnt/Malnutrition Start: 10/07/17 12: 37 Text: Status: Complete Freq: Document 10/07/17 12:37 REBECA (Rec: 10/07/17 12:50 REBECA [email or web address]) Nutritional Asmnt/Malnutrition Patient General Information Nutritional Screening High Risk Consult Diagnosis PNA, elevated troponin, leukocytosis Pertinent Medical Hx/Surgical Hx HTN, DM, dementia, BPH, HIV Subjective Information Consult received for low dian score. Pt seen awake, not able to talk during the time of visit. MUSIC INSTRUCTOR was feeding pt lunch. Pt appeared not able to chew regular texture food. RN Florinda recommend purreed diet and will change the diet order. Per RN, pt only had few cream of wheat this morning. pt has teeth noted, appeared mild mucle wasting on chest. Current Diet Order/ Nutrition Support low sodium 2gm Pertinent Medications levauin Pertinent Labs 10/07 Na 135L, K 3.3, Glu 96 10/06 Na 135L, Glu 130H, Alb 2 .5L Nutritional Hx/Data Height 1.68 m Height (Calculated Centimeters) 167.6 Current Weight (lbs) 50.122 kg Weight (Calculated Kilograms) 50.1 Weight (Calculated Grams) 22850.0 [place] Body Weight 148 % [place] Body Weight 75 Body Mass Index (BMI) 17.8 Weight Status Underweight GI Symptoms GI Symptoms None Last BM 10/07 Difficult in: Chewing Usual diet at home not able to obtain Skin Integrity/Comment: pressured area on coccyx, skin loose, dry and blackened Estimated Nutritional Goals BEE in Kcals: Using Current wt Calories/Kcals/Kg 35-40 Kcals Calculated 4577-0158 Protein: Using Current wt Protein g/k.5 Protein Calculated 75 Fluid: ml 9854-2842 Nutritional Problem 2. Problem Problem increased nutrition needs ( calorie and protein0 Etiology increased metabolic demand Signs/Symptoms: dx of HIV, PNA 1. Problem Problem chewing difficulty Etiology ?weakness, ?mental status Signs/Symptoms: not able chewing regular texture food and possible need for pureed diet Malnutrition Alert Protein-Calorie Malnutrition N/A Is there a minimum of two criteria No selected? Query Text:Check all the applicable criteria. A minimum of two criteria are recommended for diagnosis of either severe or non-severe malnutrition. Intervention/Recommendation Comments 1. Recommend pureed [place] diet d /t chewing difficulty. RN will modify diet order. 2. Monitor PO intake, wt weekly, skin integrity and labs 3. If PO intake continue to be low, will consider nutrition supplements to increase calorie and protein intake 4. F/U as high risk in 2-3 days, 10/09-10/10 Expected Outcomes/Goals Expected Outcomes/Goals 1. Pt will tolerated pureed diet and PO intake at least 50 % 2. wt stability, skin to remain intact, labs to improve
[2017-10-09] MEDS: LAMIVUDINE PO SCH (16:36)
[2017-10-09] MEDS: Levofloxacin 500mg/100mL 500 MG/100 ML BAG IV SCH (17:16)
[2017-10-10 06:25] LABS: ANION GAP 11.3 (7.0-16.0); BUN - UREA NITROGEN 33 mg/dL (7-25); BUN/CREATININE RATIO 36.7; CALCIUM SERUM 9.1 mg/dL (8.6-10.3); CARBON DIOXIDE 20.5 mEq/L (21.0-31.0); CHLORIDE 110 mEq/L (98-107); CREATININE - SERUM 0.9 mg/dL (0.7-1.3); GLUCOSE 88 mg/dL (70-105); POTASSIUM SERUM 3.8 mEq/L (3.5-5.1); SODIUM SERUM 138 mEq/L (136-145)
[2017-10-10 07:12] LABS: HEMOGLOBIN 8.2 gm/dL (12-16); MEAN CELL VOLUME 100.5 fl (80-99); MEAN CORPUSCULAR HEMOGLOBIN 34.7 pg (27.0-31.0); MEAN CORPUSCULAR HGB CONC 34.5 pg (28.0-36.0); MEAN PLATELET VOLUME 7.5 fl; NEUTROPHILE ABSOLUTE 7.6 Th/cmm (1.8-8.0); PLATELET COUNT 189 Th/cmm (150-400); RED BLOOD COUNT 2.38 Mil/cmm (3.80-5.80)
[2017-10-10 07:13] LABS: HEMATOCRIT 23.9 % (41.0-60); WHITE BLOOD COUNT 8.3 Th/cmm (4.8-10.8)
[2017-10-10 08:39] LABS: ANISOCYTOSIS 1+; BAND NEUTROPHILE 5 % (0-10); NEUTROPHILS 84 % (40-80); PLATELET ESTIMATE ADEQUATE (NORMAL); TOTAL CELLS COUNTED 100
[2017-10-10] MEDS: Pantoprazole 40 mg EC Tab PO SCH (09:59)
[2017-10-10] MEDS: [UNRECOGNIZED DRUG - OTHER] PO SCH (10:01)
[2017-10-10] MEDS: ABACAVIR PO SCH (10:01)
[2017-10-10] MEDS: LAMIVUDINE PO SCH (10:01)
[2017-10-10] MEDS: Sulfamethoxazole/TMP 800/160mg Tab PO SCH ×3 (10:02→21:26)
[2017-10-10] MEDS: Levofloxacin 500mg/100mL 500 MG/100 ML BAG IV SCH (17:50)
--- NOTE | 2017-10-10 22:16 | Progress Notes ---
DATE: 10/10/2017 DATE OF SERVICE: 10/10/2017 SUBJECTIVE: The patient was seen in his room, lying in the bed. The patient appears to be comfortable, in no acute distress. the patient is a poor historian due to medical condition. OBJECTIVE: VITAL SIGNS: Temperature 97.7, heart rate is 62, blood pressure 153/69, respirations of 18, 100% on 2 liters via nasal cannula. HEENT: Head is atraumatic and normocephalic. Eyes: Bilateral conjunctivae are clear. Bilateral pupils are equally round and reactive. NECK: Supple. No JVD. CARDIOVASCULAR: S1 and S2, without murmur. PULMONARY: Fine scattered rhonchi noted. GASTROINTESTINAL: Soft and nontender without guarding. Positive bowel sounds. MUSCULOSKELETAL: No clubbing, no cyanosis noted. ASSESSMENT: 1. Pneumonia. 2. Human immunodeficiency virus. 3. Diabetes mellitus. 4. Hypertension. 5. Diabetes. 6. Dementia. 7. Benign prostatic hypertrophy. PLAN: We will keep the patient inpatient in Telemetry Unit. We will follow up with ID doctor to monitor patient's condition and status. Treatment plans were discussed with the patient's nurse. Treatment plans were discussed with Dr. Cleary. JOB# [id number]
[2017-10-11 05:55] LABS: MEAN CELL VOLUME 100.1 fl (80-99); MEAN CORPUSCULAR HEMOGLOBIN 33.9 pg (27.0-31.0); MEAN CORPUSCULAR HGB CONC 33.9 pg (28.0-36.0); MEAN PLATELET VOLUME 7.2 fl; PLATELET COUNT 188 Th/cmm (150-400); RED BLOOD COUNT 2.65 Mil/cmm (3.80-5.80)
[2017-10-11 06:00] LABS: HEMATOCRIT 26.6 % (41.0-60); WHITE BLOOD COUNT 12.2 Th/cmm (4.8-10.8)
[2017-10-11 07:29] LABS: TOTAL CELLS COUNTED 100
[2017-10-11 07:30] LABS: ANISOCYTOSIS 1+; BAND NEUTROPHILE 7 % (0-10); EOSINOPHIL 1 % (0-5); NEUTROPHILS 79 % (40-80); PLATELET ESTIMATE ADEQUATE (NORMAL)
[2017-10-11] MEDS: Pantoprazole 40 mg EC Tab PO SCH (08:19)
[2017-10-11] MEDS: ABACAVIR PO SCH (08:20)
[2017-10-11] MEDS: Sulfamethoxazole/TMP 800/160mg Tab PO SCH ×3 (08:20→20:30)
[2017-10-11] MEDS: [UNRECOGNIZED DRUG - OTHER] PO SCH (08:20)
[2017-10-11] MEDS: LAMIVUDINE PO SCH (08:57)
--- NOTE | 2017-10-11 10:52 | General Progress Note ---
Subjective - Review of Systems Events since last encounter: patient is comfortable in no acute distress Objective - Results Result Diagrams: 10/11/17 04:50 10/10/17 05:15 Recent Labs: Laboratory Last Values WBC 12.2 Th/cmm (4.8-10.8) H D 10/11/17 04:50 RBC 2.65 Mil/cmm (3.80-5.80) L 10/11/17 04:50 Hgb 9.0 gm/dL (12-16) L 10/11/17 04:50 Hct 26.6 % (41.0-60) L D 10/11/17 04:50 MCV 100.1 fl (80-99) H 10/11/17 04:50 MCH 33.9 pg (27.0-31.0) H 10/11/17 04:50 MCHC Differential 33.9 pg (28.0-36.0) 10/11/17 04:50 RDW 17.0 % (11.5-20.0) 10/11/17 04:50 Plt Count 188 Th/cmm (150-400) 10/11/17 04:50 MPV 7.2 fl 10/11/17 04:50 Band Neutrophils % 7 % (0-10) 10/11/17 04:50 Neutrophils (Manual) 79 % (40-80) 10/11/17 04:50 Lymphocytes 10 % (20-50) L 10/11/17 04:50 Monocytes 3 % (2-10) 10/11/17 04:50 Eosinophils 1 % (0-5) 10/11/17 04:50 Basophils 0 % (0-3) 10/06/17 18:47 Platelet Estimate ADEQUATE (NORMAL) 10/11/17 04:50 Platelet Morphology NORMAL (NORMAL) 10/06/17 18:47 Anisocytosis 1+ 10/11/17 04:50 RBC Morph Micro Appear NORMAL (NORMAL) 10/06/17 18:47 PT 10.8 SECONDS (9.5-11.5) 10/06/17 18:47 INR 1.04 (0.5-1.4) 10/06/17 18:47 Sodium 138 mEq/L (136-145) 10/10/17 05:15 Potassium 3.8 mEq/L (3.5-5.1) 10/10/17 05:15 Chloride 110 mEq/L (98-107) H 10/10/17 05:15 Carbon Dioxide 20.5 mEq/L (21.0-31.0) L 10/10/17 05:15 Anion Gap 11.3 (7.0-16.0) 10/10/17 05:15 BUN 33 mg/dL (7-25) H 10/10/17 05:15 Creatinine 0.9 mg/dL (0.7-1.3) 10/10/17 05:15 Est GFR ( Amer) > 60.0 ml/min (>90) 10/10/17 05:15 Est GFR (Non-Af Amer) > 60.0 ml/min 10/10/17 05:15 BUN/Creatinine Ratio 36.7 10/10/17 05:15 Glucose 88 mg/dL (70-105) 10/10/17 05:15 Whole Bld Lactic Acid 0.98 mmol/L (0.60-1.99) 10/06/17 18:47 Calcium 9.1 mg/dL (8.6-10.3) 10/10/17 05:15 Total Bilirubin 0.3 mg/dL (0.3-1.0) 10/09/17 05:15 AST 13 U/L (13-39) 10/09/17 05:15 ALT 22 U/L (7-52) 10/09/17 05:15 Alkaline Phosphatase 74 U/L (34-104) 10/09/17 05:15 Lactate Dehydrogenase 170 U/L (140-271) 10/07/17 07:11 Creatine Kinase 119 U/L (30-223) 10/07/17 10:00 Troponin I 0.04 ng/mL (0.01-0.05) 10/07/17 10:00 B-Natriuretic Peptide 215.0 pg/mL (5.0-100.0) H 10/07/17 07:11 Total Protein 5.6 gm/dL (6.0-8.3) L 10/09/17 05:15 Albumin 2.2 gm/dL (4.2-5.5) L 10/09/17 05:15 Globulin 3.4 gm/dL 10/09/17 05:15 Albumin/Globulin Ratio 0.7 (1.0-1.8) L 10/09/17 05:15 Triglycerides 74 mg/dL (<150) 10/06/17 18:47 Cholesterol 94 mg/dL (<200) 10/06/17 18:47 LDL Cholesterol Direct 56 mg/dL (75-193) L 10/06/17 18:47 HDL Cholesterol 29 mg/dL (23-92) 10/06/17 18:47 TSH 1.17 uIU/ml (0.34-5.60) 10/07/17 07:11 Urine Source CATH 10/06/17 18:00 Urine Color YELLOW 10/06/17 18:00 Urine Clarity CLEAR (CLEAR) 10/06/17 18:00 Urine pH 5.5 (4.6 - 8.0) 10/06/17 18:00 Ur Specific [place] 1.025 (1.005-1.030) 10/06/17 18:00 Urine Protein 30 mg/dL (NEGATIVE) H 10/06/17 18:00 Urine Glucose (UA) NEGATIVE mg/dL (NEGATIVE) 10/06/17 18:00 Urine Ketones NEGATIVE mg/dL (NEGATIVE) 10/06/17 18:00 Urine Blood SMALL (NEGATIVE) H 10/06/17 18:00 Urine Nitrate NEGATIVE (NEGATIVE) 10/06/17 18:00 Urine Bilirubin NEGATIVE (NEGATIVE) 10/06/17 18:00 Urine Urobilinogen 0.2 E.U./dL (0.2 - 1.0) 10/06/17 18:00 Ur Leukocyte Esterase NEGATIVE (NEGATIVE) 10/06/17 18:00 Urine RBC 0-2 /hpf (0-5) H 10/06/17 18:00 Urine WBC 0-2 /hpf (0-5) 10/06/17 18:00 Ur Epithelial Cells NONE SEEN /lpf (FEW) 10/06/17 18:00 Urine Bacteria FEW /hpf (NONE SEEN) 10/06/17 18:00 Absolute CD4 Count SEE REF. LAB REPORT 10/07/17 10:00 HIV 1&2 Antibody Screen POSITIVE (NEG) H 10/07/17 07:11 HIV (1&2) Ab Confirm SEE REF. LAB REPORT 10/07/17 10:00 - Physical Exam Vitals and I&O: Vital Signs Temp 97.1 F 10/11/17 08:00 Pulse 66 10/11/17 08:21 Resp 24 10/11/17 10:00 BP 154/80 10/11/17 08:21 Pulse Ox 99 10/11/17 08:00 Intake & Output 10/10/17 10/11/17 10/11/17 18:59 06:59 18:59 Intake Total 300 250 Output Total 200 575 Balance 100 -325 Weight (lbs) 45.813 kg 45.813 kg Intake: Intake, IV Amount 100 Levofloxacin 500mg/100mL 100 500 mg In 100 ml @ 100 mls/hr IV Q24HR [facility] Rx#: [id number] Oral 300 150 Output: Urine 200 575 Other: Stool Characteristics Soft Active Medications: Current Medications Acetaminophen (Tylenol) 650 mg PO Q6H PRN PRN Reason: fever/pain Stop: 12/05/17 22:31 Azithromycin (Zithromax) 625 mg PO DAILY [facility] Stop: 12/07/17 08:59 Last Admin: 10/11/17 08:46 Dose: 625 mg Finasteride (Proscar) 5 mg PO DAILY [facility] PRN Reason: Protocol Stop: 12/06/17 08:59 Last Admin: 10/11/17 08:56 Dose: 5 mg Hydralazine HCl (Apresoline) 25 mg PO Q8HR [facility] Stop: 12/05/17 22:31 Last Admin: 10/11/17 05:17 Dose: 25 mg Levofloxacin (Levaquin Pb) 500 mg in 100 mls @ 100 mls/hr IV Q24HR [facility] Stop: 12/06/17 17:59 Last Infusion: 10/11/17 06:21 Dose: Infused Losartan Potassium (Cozaar) 75 mg PO BID [facility] Stop: 12/06/17 08:59 Last Admin: 10/11/17 08:21 Dose: 75 mg Miscellaneous (Dolutegravir Sodium [Tivicay]) 1 tab PO DAILY [facility] Stop: 12/06/17 08:59 Miscellaneous (Probiotic Screen) 1 ea MC PRN PRN PRN Reason: PROTOCOL Stop: 12/08/17 11:05 Pantoprazole Sodium (Protonix) 40 mg PO DAILY [facility] Stop: 12/06/17 08:59 Last Admin: 10/11/17 08:19 Dose: 40 mg Epivir (Lamivudine) (150mg Tab) 1 PO DAILY [facility] Stop: 12/06/17 08:59 Last Admin: 10/11/17 08:57 Dose: 1 Patient Own Med ( Abacavir/Ziagen - 300mg/Tab) 2 PO DAILY [facility] Stop: 12/08/17 08:59 Last Admin: 10/11/17 08:20 Dose: 2 Sucralfate (Carafate) 1 gm PO QID [facility] Stop: 12/06/17 08:59 Last Admin: 10/11/17 08:19 Dose: 1 gm Trimethoprim/Sulfamethoxazole (Bactrim Ds) 2 tab PO TID [facility] Stop: 12/06/17 09:14 Last Admin: 10/11/17 08:20 Dose: 2 tab General: No acute distress HEENT: Atraumatic Neck: Thyromegaly - Procedures Procedures: Procedures Procedure Code Date ARTERIAL BLD GAS MEASURE 89.65 03/18/95 ELECTROCARDIOGRAM 89.52 03/18/95 NEBULIZER THERAPY 93.94 03/18/95 OXYGEN ENRICHMENT NEC 93.96 03/18/95 Assessment/Plan - Problem List Patient Problems: All Active Problems COUGH WITH CONGESTION AND FEVER (Acute) - Plan Plan: cpm Nutritional Asmnt/Malnutr-PDOC - Dietary Evaluation Malnutrition Findings (Please click <Entered> for more info): Nutritional Asmnt/Malnutrition Start: 10/07/17 12: 37 Text: Status: Complete Freq: Document 10/07/17 12:37 LCHENG (Rec: 10/07/17 12:50 LCHENG [email or web address]) Nutritional Asmnt/Malnutrition Patient General Information Nutritional Screening High Risk Consult Diagnosis PNA, elevated troponin, leukocytosis Pertinent Medical Hx/Surgical Hx HTN, DM, dementia, BPH, HIV Subjective Information Consult received for low dian score. Pt seen awake, not able to talk during the time of visit. 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 Pt appeared not able to chew regular texture food. RN Florinda recommend purreed diet and will change the diet order. Per RN, pt only had few cream of wheat this morning. pt has teeth noted, appeared mild mucle wasting on chest. Current Diet Order/ Nutrition Support low sodium 2gm Pertinent Medications levauin Pertinent Labs 10/07 Na 135L, K 3.3, Glu 96 10/06 Na 135L, Glu 130H, Alb 2 .5L Nutritional Hx/Data Height 1.68 m Height (Calculated Centimeters) 167.6 Current Weight (lbs) 50.122 kg Weight (Calculated Kilograms) 50.1 Weight (Calculated Grams) 81506.0 [place] Body Weight 148 % [place] Body Weight 75 Body Mass Index (BMI) 17.8 Weight Status Underweight GI Symptoms GI Symptoms None Last BM 10/07 Difficult in: Chewing Usual diet at home not able to obtain Skin Integrity/Comment: pressured area on coccyx, skin loose, dry and blackened Estimated Nutritional Goals BEE in Kcals: Using Current wt Calories/Kcals/Kg 35-40 Kcals Calculated 7590-6704 Protein: Using Current wt Protein g/k.5 Protein Calculated 75 Fluid: ml 8967-1446 Nutritional Problem 2. Problem Problem increased nutrition needs ( calorie and protein0 Etiology increased metabolic demand Signs/Symptoms: dx of HIV, PNA 1. Problem Problem chewing difficulty Etiology ?weakness, ?mental status Signs/Symptoms: not able chewing regular texture food and possible need for pureed diet Malnutrition Alert Protein-Calorie Malnutrition N/A Is there a minimum of two criteria No selected? Query Text:Check all the applicable criteria. A minimum of two criteria are recommended for diagnosis of either severe or non-severe malnutrition. Intervention/Recommendation Comments 1. Recommend pureed [place] diet d /t chewing difficulty. RN will modify diet order. 2. Monitor PO intake, wt weekly, skin integrity and labs 3. If PO intake continue to be low, will consider nutrition supplements to increase calorie and protein intake 4. F/U as high risk in 2-3 days, 10/09-10/10 Expected Outcomes/Goals Expected Outcomes/Goals 1. Pt will tolerated pureed diet and PO intake at least 50 % 2. wt stability, skin to remain intact, labs to improve
--- NOTE | 2017-10-11 16:15 | Infectious Disease Prog Note ---
Infectious Disease Subjective - Review of Systems Service Date: 10/11/17 Subjective: No change, no fever. Infectious Disease Objective - Results Result Diagrams: 10/12/17 04:49 10/12/17 04:49 Recent Labs: Laboratory Last Values WBC 12.2 Th/cmm (4.8-10.8) H D 10/11/17 04:50 RBC 2.65 Mil/cmm (3.80-5.80) L 10/11/17 04:50 Hgb 9.0 gm/dL (12-16) L 10/11/17 04:50 Hct 26.6 % (41.0-60) L D 10/11/17 04:50 MCV 100.1 fl (80-99) H 10/11/17 04:50 MCH 33.9 pg (27.0-31.0) H 10/11/17 04:50 MCHC Differential 33.9 pg (28.0-36.0) 10/11/17 04:50 RDW 17.0 % (11.5-20.0) 10/11/17 04:50 Plt Count 188 Th/cmm (150-400) 10/11/17 04:50 MPV 7.2 fl 10/11/17 04:50 Band Neutrophils % 7 % (0-10) 10/11/17 04:50 Neutrophils (Manual) 79 % (40-80) 10/11/17 04:50 Lymphocytes 10 % (20-50) L 10/11/17 04:50 Monocytes 3 % (2-10) 10/11/17 04:50 Eosinophils 1 % (0-5) 10/11/17 04:50 Basophils 0 % (0-3) 10/06/17 18:47 Platelet Estimate ADEQUATE (NORMAL) 10/11/17 04:50 Platelet Morphology NORMAL (NORMAL) 10/06/17 18:47 Anisocytosis 1+ 10/11/17 04:50 RBC Morph Micro Appear NORMAL (NORMAL) 10/06/17 18:47 PT 10.8 SECONDS (9.5-11.5) 10/06/17 18:47 INR 1.04 (0.5-1.4) 10/06/17 18:47 Sodium 138 mEq/L (136-145) 10/10/17 05:15 Potassium 3.8 mEq/L (3.5-5.1) 10/10/17 05:15 Chloride 110 mEq/L (98-107) H 10/10/17 05:15 Carbon Dioxide 20.5 mEq/L (21.0-31.0) L 10/10/17 05:15 Anion Gap 11.3 (7.0-16.0) 10/10/17 05:15 BUN 33 mg/dL (7-25) H 10/10/17 05:15 Creatinine 0.9 mg/dL (0.7-1.3) 10/10/17 05:15 Est GFR ( Amer) > 60.0 ml/min (>90) 10/10/17 05:15 Est GFR (Non-Af Amer) > 60.0 ml/min 10/10/17 05:15 BUN/Creatinine Ratio 36.7 10/10/17 05:15 Glucose 88 mg/dL (70-105) 10/10/17 05:15 Whole Bld Lactic Acid 0.98 mmol/L (0.60-1.99) 10/06/17 18:47 Calcium 9.1 mg/dL (8.6-10.3) 10/10/17 05:15 Total Bilirubin 0.3 mg/dL (0.3-1.0) 10/09/17 05:15 AST 13 U/L (13-39) 10/09/17 05:15 ALT 22 U/L (7-52) 10/09/17 05:15 Alkaline Phosphatase 74 U/L (34-104) 10/09/17 05:15 Lactate Dehydrogenase 170 U/L (140-271) 10/07/17 07:11 Creatine Kinase 119 U/L (30-223) 10/07/17 10:00 Troponin I 0.04 ng/mL (0.01-0.05) 10/07/17 10:00 B-Natriuretic Peptide 215.0 pg/mL (5.0-100.0) H 10/07/17 07:11 Total Protein 5.6 gm/dL (6.0-8.3) L 10/09/17 05:15 Albumin 2.2 gm/dL (4.2-5.5) L 10/09/17 05:15 Globulin 3.4 gm/dL 10/09/17 05:15 Albumin/Globulin Ratio 0.7 (1.0-1.8) L 10/09/17 05:15 Triglycerides 74 mg/dL (<150) 10/06/17 18:47 Cholesterol 94 mg/dL (<200) 10/06/17 18:47 LDL Cholesterol Direct 56 mg/dL (75-193) L 10/06/17 18:47 HDL Cholesterol 29 mg/dL (23-92) 10/06/17 18:47 TSH 1.17 uIU/ml (0.34-5.60) 10/07/17 07:11 Urine Source CATH 10/06/17 18:00 Urine Color YELLOW 10/06/17 18:00 Urine Clarity CLEAR (CLEAR) 10/06/17 18:00 Urine pH 5.5 (4.6 - 8.0) 10/06/17 18:00 Ur Specific [place] 1.025 (1.005-1.030) 10/06/17 18:00 Urine Protein 30 mg/dL (NEGATIVE) H 10/06/17 18:00 Urine Glucose (UA) NEGATIVE mg/dL (NEGATIVE) 10/06/17 18:00 Urine Ketones NEGATIVE mg/dL (NEGATIVE) 10/06/17 18:00 Urine Blood SMALL (NEGATIVE) H 10/06/17 18:00 Urine Nitrate NEGATIVE (NEGATIVE) 10/06/17 18:00 Urine Bilirubin NEGATIVE (NEGATIVE) 10/06/17 18:00 Urine Urobilinogen 0.2 E.U./dL (0.2 - 1.0) 10/06/17 18:00 Ur Leukocyte Esterase NEGATIVE (NEGATIVE) 10/06/17 18:00 Urine RBC 0-2 /hpf (0-5) H 10/06/17 18:00 Urine WBC 0-2 /hpf (0-5) 10/06/17 18:00 Ur Epithelial Cells NONE SEEN /lpf (FEW) 10/06/17 18:00 Urine Bacteria FEW /hpf (NONE SEEN) 10/06/17 18:00 Absolute CD4 Count SEE REF. LAB REPORT 10/07/17 10:00 HIV 1&2 Antibody Screen POSITIVE (NEG) H 10/07/17 07:11 HIV (1&2) Ab Confirm SEE REF. LAB REPORT 10/07/17 10:00 - Physical Exam Vitals and I&O: Vital Signs Temp 97.5 F 10/11/17 12:00 Pulse 67 11/26/17 13:05 Resp 24 10/11/17 14:00 BP 133/78 10/11/17 13:05 Pulse Ox 100 10/11/17 12:00 Intake & Output 10/10/17 10/11/17 10/11/17 18:59 06:59 18:59 Intake Total 300 250 Output Total 200 575 Balance 100 -325 Weight (lbs) 45.813 kg 45.813 kg Intake: Intake, IV Amount 100 Levofloxacin 500mg/100mL 100 500 mg In 100 ml @ 100 mls/hr IV Q24HR [facility] Rx#: [id number] Oral 300 150 Output: Urine 200 575 Other: Stool Characteristics Soft Active Medications: Current Medications Acetaminophen (Tylenol) 650 mg PO Q6H PRN PRN Reason: fever/pain Stop: 12/05/17 22:31 Azithromycin (Zithromax) 625 mg PO DAILY [facility] Stop: 12/07/17 08:59 Last Admin: 10/11/17 08:46 Dose: 625 mg Finasteride (Proscar) 5 mg PO DAILY [facility] PRN Reason: Protocol Stop: 12/06/17 08:59 Last Admin: 10/11/17 08:56 Dose: 5 mg Hydralazine HCl (Apresoline) 25 mg PO Q8HR [facility] Stop: 12/05/17 22:31 Last Admin: 10/11/17 13:05 Dose: 25 mg Levofloxacin (Levaquin Pb) 500 mg in 100 mls @ 100 mls/hr IV Q24HR [facility] Stop: 12/06/17 17:59 Last Infusion: 10/11/17 06:21 Dose: Infused Losartan Potassium (Cozaar) 75 mg PO BID [facility] Stop: 12/06/17 08:59 Last Admin: 10/11/17 08:21 Dose: 75 mg Miscellaneous (Dolutegravir Sodium [Tivicay]) 1 tab PO DAILY [facility] Stop: 12/06/17 08:59 Miscellaneous (Probiotic Screen) 1 ea MC PRN PRN PRN Reason: PROTOCOL Stop: 12/08/17 11:05 Pantoprazole Sodium (Protonix) 40 mg PO DAILY [facility] Stop: 12/06/17 08:59 Last Admin: 10/11/17 08:19 Dose: 40 mg Epivir (Lamivudine) (150mg Tab) 1 PO DAILY [facility] Stop: 12/06/17 08:59 Last Admin: 10/11/17 08:57 Dose: 1 Patient Own Med ( Abacavir/Ziagen - 300mg/Tab) 2 PO DAILY [facility] Stop: 12/08/17 08:59 Last Admin: 10/11/17 08:20 Dose: 2 Sucralfate (Carafate) 1 gm PO QID [facility] Stop: 12/06/17 08:59 Last Admin: 10/11/17 13:03 Dose: 1 gm Trimethoprim/Sulfamethoxazole (Bactrim Ds) 2 tab PO TID [facility] Stop: 12/06/17 09:14 Last Admin: 10/11/17 13:03 Dose: 2 tab General: no acute distress, well developed, well nourished HEENT: atraumatic, normocephalic, PERRLA, EOMI, moist mucous membrane Neck: supple, no thyromegaly, no lymphadenopathy, no rigid Cardiovascular: S1S2, regular Lungs: clear to auscultation bilaterally, clear to percussion Abdomen: soft, no tender, no distended Extremities: no cyanosis, no clubbing, no edema Neurological: awake, alert, oriented Skin: intact - Procedures Procedures: Procedures Procedure Code Date ARTERIAL BLD GAS MEASURE 89.65 03/18/95 ELECTROCARDIOGRAM 89.52 03/18/95 NEBULIZER THERAPY 93.94 03/18/95 OXYGEN ENRICHMENT NEC 93.96 03/18/95 Infectious Disease Assmt/Plan - Problem List Patient Problems: All Active Problems COUGH WITH CONGESTION AND FEVER (Acute) - Assessment Assessment: 1. Sepsis. 2. Pneumpnia, RLL. 3. HIV advanced. 4. MAC colitis. 5. cerebral mass and hydrocephalus. 6. 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 7. DM2. - Plan Plan: Continue antiretroviral, and antibiotics. may transfer to the [facility]. Patient is well known to [facility]. Nutritional Asmnt/Malnutr-PDOC - Dietary Evaluation Malnutrition Findings (Please click <Entered> for more info): Nutritional Asmnt/Malnutrition Start: 10/07/17 12: 37 Text: Status: Complete Freq: Document 10/07/17 12:37 REBECA (Rec: 10/07/17 12:50 REBECA [email or web address]) Nutritional Asmnt/Malnutrition Patient General Information Nutritional Screening High Risk Consult Diagnosis PNA, elevated troponin, leukocytosis Pertinent Medical Hx/Surgical Hx HTN, DM, dementia, BPH, HIV Subjective Information Consult received for low dian score. Pt seen awake, not able to talk during the time of visit. [employer] MANAGER was feeding pt lunch. Pt appeared not able to chew regular texture food. RN Florinda recommend purreed diet and will change the diet order. Per RN, pt only had few cream of wheat this morning. pt has teeth noted, appeared mild mucle wasting on chest. Current Diet Order/ Nutrition Support low sodium 2gm Pertinent Medications levauin Pertinent Labs 10/07 Na 135L, K 3.3, Glu 96 10/06 Na 135L, Glu 130H, Alb 2 .5L Nutritional Hx/Data Height 1.68 m Height (Calculated Centimeters) 167.6 Current Weight (lbs) 50.122 kg Weight (Calculated Kilograms) 50.1 Weight (Calculated Grams) 91833.0 [place] Body Weight 148 % [place] Body Weight 75 Body Mass Index (BMI) 17.8 Weight Status Underweight GI Symptoms GI Symptoms None Last BM 10/07 Difficult in: Chewing Usual diet at home not able to obtain Skin Integrity/Comment: pressured area on coccyx, skin loose, dry and blackened Estimated Nutritional Goals BEE in Kcals: Using Current wt Calories/Kcals/Kg 35-40 Kcals Calculated 8991-7449 Protein: Using Current wt Protein g/k.5 Protein Calculated 75 Fluid: ml 3214-3924 Nutritional Problem 2. Problem Problem increased nutrition needs ( calorie and protein0 Etiology increased metabolic demand Signs/Symptoms: dx of HIV, PNA 1. Problem Problem chewing difficulty Etiology ?weakness, ?mental status Signs/Symptoms: not able chewing regular texture food and possible need for pureed diet Malnutrition Alert Protein-Calorie Malnutrition N/A Is there a minimum of two criteria No selected? Query Text:Check all the applicable criteria. A minimum of two criteria are recommended for diagnosis of either severe or non-severe malnutrition. Intervention/Recommendation Comments 1. Recommend pureed [place] diet d /t chewing difficulty. RN will modify diet order. 2. Monitor PO intake, wt weekly, skin integrity and labs 3. If PO intake continue to be low, will consider nutrition supplements to increase calorie and protein intake 4. F/U as high risk in 2-3 days, 10/09-10/10 Expected Outcomes/Goals Expected Outcomes/Goals 1. Pt will tolerated pureed diet and PO intake at least 50 % 2. wt stability, skin to remain intact, labs to improve
[2017-10-11] MEDS: Levofloxacin 500mg/100mL 500 MG/100 ML BAG IV SCH (17:27)
[2017-10-12 05:41] LABS: ALB/GLOB RATIO 0.7 (1.0-1.8); ALKALINE PHOSPHATASE 104 U/L (34-104); ANION GAP 9.4 (7.0-16.0); BILIRUBIN,TOTAL 0.3 mg/dL (0.3-1.0); BUN - UREA NITROGEN 32 mg/dL (7-25); CALCIUM SERUM 8.9 mg/dL (8.6-10.3); CARBON DIOXIDE 22.7 mEq/L (21.0-31.0); CHLORIDE 109 mEq/L (98-107); CREATININE - SERUM 0.8 mg/dL (0.7-1.3); GLUCOSE 92 mg/dL (70-105); POTASSIUM SERUM 4.1 mEq/L (3.5-5.1); SGOT 56 U/L (13-39); SGPT/ALT 50 U/L (7-52); SODIUM SERUM 137 mEq/L (136-145)
[2017-10-12 05:44] LABS: % BASOPHILS 0.2 % (0.0-2.0); % EOSINOPHILS 1.9 % (0.0-5.0); % LYMPHOCYTES 5.4 % (20.0-50.0); % MONOCYTES 4.8 % (2.0-10.0); % NEUTROPHILS 87.7 % (40.0-80.0); MEAN CELL VOLUME 99.8 fl (80-99); MEAN CORPUSCULAR HEMOGLOBIN 34.1 pg (27.0-31.0); MEAN CORPUSCULAR HGB CONC 34.2 pg (28.0-36.0); MEAN PLATELET VOLUME 6.7 fl; NEUTROPHILE ABSOLUTE 6.1 Th/cmm (1.8-8.0); PLATELET COUNT 210 Th/cmm (150-400); RED BLOOD COUNT 2.31 Mil/cmm (3.80-5.80); RED CELL DISTRIBUTION WIDTH 16.9 % (11.5-20.0)
[2017-10-12 05:47] LABS: HEMOGLOBIN 7.9 gm/dL (12-16); WHITE BLOOD COUNT 6.9 Th/cmm (4.8-10.8)
--- NOTE | 2017-10-12 08:18 | Diagnostic Imaging Report ---
Exam: Portable exam of the chest. HISTORY: Pneumonia. Findings: Portable upright examination of the chest at the 0812 hours was reviewed compared to prior study of 10/06/2017 demonstrates unchanged appearance of right lower lobe pneumonia. Mediastinal structures midline the heart is not enlarged the aortic arch calcified. Bony thorax is intact. IMPRESSION: right lower lobe pneumonia, essentially unchanged upper prior examination of 10/06/2017. Follow-up examination recommended.
[2017-10-12] MEDS: Pantoprazole 40 mg EC Tab PO SCH (08:24)
[2017-10-12] MEDS: Sulfamethoxazole/TMP 800/160mg Tab PO SCH ×2 (08:26→16:05)
[2017-10-12] MEDS: ABACAVIR PO SCH (08:26)
[2017-10-12] MEDS: [UNRECOGNIZED DRUG - OTHER] PO SCH (08:26)
[2017-10-12] MEDS: LAMIVUDINE PO SCH (09:00)
--- NOTE | 2017-10-12 11:51 | Infectious Disease Prog Note ---
Infectious Disease Subjective - Review of Systems Service Date: 10/12/17 Subjective: No change, no fever. Infectious Disease Objective - Results Result Diagrams: 10/12/17 04:49 10/12/17 04:49 Recent Labs: Laboratory Last Values WBC 6.9 Th/cmm (4.8-10.8) D 10/12/17 04:49 RBC 2.31 Mil/cmm (3.80-5.80) L 10/12/17 04:49 Hgb 7.9 gm/dL (12-16) L* D 10/12/17 04:49 Hct 23.0 % (41.0-60) L D 10/12/17 04:49 MCV 99.8 fl (80-99) H 10/12/17 04:49 MCH 34.1 pg (27.0-31.0) H 10/12/17 04:49 MCHC Differential 34.2 pg (28.0-36.0) 10/12/17 04:49 RDW 16.9 % (11.5-20.0) 10/12/17 04:49 Plt Count 210 Th/cmm (150-400) 10/12/17 04:49 MPV 6.7 fl 10/12/17 04:49 Neutrophils % 87.7 % (40.0-80.0) H 10/12/17 04:49 Band Neutrophils % 7 % (0-10) 10/11/17 04:50 Lymphocytes % 5.4 % (20.0-50.0) L 10/12/17 04:49 Monocytes % 4.8 % (2.0-10.0) 10/12/17 04:49 Eosinophils % 1.9 % (0.0-5.0) 10/12/17 04:49 Basophils % 0.2 % (0.0-2.0) 10/12/17 04:49 Neutrophils (Manual) 79 % (40-80) 10/11/17 04:50 Lymphocytes 10 % (20-50) L 10/11/17 04:50 Monocytes 3 % (2-10) 10/11/17 04:50 Eosinophils 1 % (0-5) 10/11/17 04:50 Basophils 0 % (0-3) 10/06/17 18:47 Platelet Estimate ADEQUATE (NORMAL) 10/11/17 04:50 Platelet Morphology NORMAL (NORMAL) 10/06/17 18:47 Anisocytosis 1+ 10/11/17 04:50 RBC Morph Micro Appear NORMAL (NORMAL) 10/06/17 18:47 PT 10.8 SECONDS (9.5-11.5) 10/06/17 18:47 INR 1.04 (0.5-1.4) 10/06/17 18:47 Sodium 137 mEq/L (136-145) 10/12/17 04:49 Potassium 4.1 mEq/L (3.5-5.1) 10/12/17 04:49 Chloride 109 mEq/L (98-107) H 10/12/17 04:49 Carbon Dioxide 22.7 mEq/L (21.0-31.0) 10/12/17 04:49 Anion Gap 9.4 (7.0-16.0) 10/12/17 04:49 BUN 32 mg/dL (7-25) H 10/12/17 04:49 Creatinine 0.8 mg/dL (0.7-1.3) 10/12/17 04:49 Est GFR ( Amer) > 60.0 ml/min (>90) 10/12/17 04:49 Est GFR (Non-Af Amer) > 60.0 ml/min 10/12/17 04:49 BUN/Creatinine Ratio 40.0 10/12/17 04:49 Glucose 92 mg/dL (70-105) 10/12/17 04:49 Whole Bld Lactic Acid 0.98 mmol/L (0.60-1.99) 10/06/17 18:47 Calcium 8.9 mg/dL (8.6-10.3) 10/12/17 04:49 Total Bilirubin 0.3 mg/dL (0.3-1.0) 10/12/17 04:49 AST 56 U/L (13-39) H 10/12/17 04:49 ALT 50 U/L (7-52) 10/12/17 04:49 Alkaline Phosphatase 104 U/L (34-104) 10/12/17 04:49 Lactate Dehydrogenase 170 U/L (140-271) 10/07/17 07:11 Creatine Kinase 119 U/L (30-223) 10/07/17 10:00 Troponin I 0.04 ng/mL (0.01-0.05) 10/07/17 10:00 B-Natriuretic Peptide 215.0 pg/mL (5.0-100.0) H 10/07/17 07:11 Total Protein 5.3 gm/dL (6.0-8.3) L 10/12/17 04:49 Albumin 2.1 gm/dL (4.2-5.5) L 10/12/17 04:49 Globulin 3.2 gm/dL 10/12/17 04:49 Albumin/Globulin Ratio 0.7 (1.0-1.8) L 10/12/17 04:49 Triglycerides 74 mg/dL (<150) 10/06/17 18:47 Cholesterol 94 mg/dL (<200) 10/06/17 18:47 LDL Cholesterol Direct 56 mg/dL (75-193) L 10/06/17 18:47 HDL Cholesterol 29 mg/dL (23-92) 10/06/17 18:47 TSH 1.17 uIU/ml (0.34-5.60) 10/07/17 07:11 Urine Source CATH 10/06/17 18:00 Urine Color YELLOW 10/06/17 18:00 Urine Clarity CLEAR (CLEAR) 10/06/17 18:00 Urine pH 5.5 (4.6 - 8.0) 10/06/17 18:00 Ur Specific [place] 1.025 (1.005-1.030) 10/06/17 18:00 Urine Protein 30 mg/dL (NEGATIVE) H 10/06/17 18:00 Urine Glucose (UA) NEGATIVE mg/dL (NEGATIVE) 10/06/17 18:00 Urine Ketones NEGATIVE mg/dL (NEGATIVE) 10/06/17 18:00 Urine Blood SMALL (NEGATIVE) H 10/06/17 18:00 Urine Nitrate NEGATIVE (NEGATIVE) 10/06/17 18:00 Urine Bilirubin NEGATIVE (NEGATIVE) 10/06/17 18:00 Urine Urobilinogen 0.2 E.U./dL (0.2 - 1.0) 10/06/17 18:00 Ur Leukocyte Esterase NEGATIVE (NEGATIVE) 10/06/17 18:00 Urine RBC 0-2 /hpf (0-5) H 10/06/17 18:00 Urine WBC 0-2 /hpf (0-5) 10/06/17 18:00 Ur Epithelial Cells NONE SEEN /lpf (FEW) 10/06/17 18:00 Urine Bacteria FEW /hpf (NONE SEEN) 10/06/17 18:00 Absolute CD4 Count SEE REF. LAB REPORT 10/07/17 10:00 HIV 1&2 Antibody Screen POSITIVE (NEG) H 10/07/17 07:11 HIV (1&2) Ab Confirm SEE REF. LAB REPORT 10/07/17 10:00 - Physical Exam Vitals and I&O: Vital Signs Temp 97.8 F 10/12/17 08:00 Pulse 75 10/12/17 08:24 Resp 20 10/12/17 08:08 BP 140/73 10/12/17 08:24 Pulse Ox 97 10/12/17 08:00 Intake & Output 10/11/17 10/12/17 10/12/17 18:59 06:59 18:59 Intake Total 450 200 Output Total 650 700 Balance -200 -500 Weight (lbs) 45.813 kg 45.813 kg Intake: Intake, IV Amount 100 Levofloxacin 500mg/100mL 100 500 mg In 100 ml @ 100 mls/hr IV Q24HR [facility] Rx#: [id number] Oral 350 200 Output: Urine 650 700 Active Medications: Current Medications Acetaminophen (Tylenol) 650 mg PO Q6H PRN PRN Reason: fever/pain Stop: 12/05/17 22:31 Azithromycin (Zithromax) 625 mg PO DAILY [facility] Stop: 12/07/17 08:59 Last Admin: 10/12/17 08:58 Dose: 625 mg Finasteride (Proscar) 5 mg PO DAILY [facility] PRN Reason: Protocol Stop: 12/06/17 08:59 Last Admin: 10/12/17 08:25 Dose: 5 mg Hydralazine HCl (Apresoline) 25 mg PO Q8HR [facility] Stop: 12/05/17 22:31 Last Admin: 10/12/17 05:46 Dose: 25 mg Levofloxacin (Levaquin Pb) 500 mg in 100 mls @ 100 mls/hr IV Q24HR [facility] Stop: 12/10/17 17:59 Last Infusion: 10/11/17 18:30 Dose: Infused Losartan Potassium (Cozaar) 75 mg PO BID [facility] Stop: 12/06/17 08:59 Last Admin: 10/12/17 08:24 Dose: 75 mg Miscellaneous (Dolutegravir Sodium [Tivicay]) 1 tab PO DAILY [facility] Stop: 12/06/17 08:59 Miscellaneous (Probiotic Screen) 1 ea [facility] PRN PRN PRN Reason: PROTOCOL Stop: 12/08/17 11:05 Pantoprazole Sodium (Protonix) 40 mg PO DAILY [facility] Stop: 12/06/17 08:59 Last Admin: 10/12/17 08:24 Dose: 40 mg Epivir (Lamivudine) (150mg Tab) 1 PO DAILY [facility] Stop: 12/06/17 08:59 Last Admin: 10/12/17 09:00 Dose: Not Given Patient Own Med ( Abacavir/Ziagen - 300mg/Tab) 2 PO DAILY [facility] Stop: 12/08/17 08:59 Last Admin: 10/12/17 08:26 Dose: 2 Sucralfate (Carafate) 1 gm PO QID [facility] Stop: 12/06/17 08:59 Last Admin: 10/12/17 08:24 Dose: 1 gm Trimethoprim/Sulfamethoxazole (Bactrim Ds) 2 tab PO TID [facility] Stop: 12/06/17 09:14 Last Admin: 10/12/17 08:26 Dose: 2 tab General: no acute distress, cachectic HEENT: normocephalic, PERRLA, EOMI, other (evp marketing shunt) Neck: supple, no thyromegaly Cardiovascular: S1S2, regular Lungs: clear to auscultation bilaterally, clear to percussion Abdomen: soft, no tender, no distended Extremities: no cyanosis, no clubbing, no edema Neurological: other (obtunded.) Skin: intact - Procedures Procedures: Procedures Procedure Code Date ARTERIAL BLD GAS MEASURE 89.65 03/18/95 ELECTROCARDIOGRAM 89.52 03/18/95 NEBULIZER THERAPY 93.94 03/18/95 OXYGEN ENRICHMENT NEC 93.96 03/18/95 Infectious Disease Assmt/Plan - Problem List Patient Problems: All Active Problems COUGH WITH CONGESTION AND FEVER (Acute) - Assessment Assessment: 1. Sepsis. 2. Pneumpnia, RLL. 3. HIV advanced. 4. MAC colitis. 5. cerebral mass and hydrocephalus. 6. S/P TISSUE SPECIALIST shunt. 7. DM2. 8. Protein calorie malnutrition. 9. Anemia 2/2 chronic disease. - Plan Plan: Continue antiretroviral, and antibiotics. may transfer to the [facility]. Patient is well known to [facility]. Antibiotic: Bactrim DS, Zithromax, levaquin. Ethambutol added. ARV: Abacavir, lamivudine, Dolutegravir. Will give one unit blood transfusion. Nutritional Asmnt/Malnutr-PDOC - Dietary Evaluation Malnutrition Findings (Please click <Entered> for more info): Nutritional Asmnt/Malnutrition Start: 10/07/17 12: 37 Text: Status: Complete Freq: Document 10/07/17 12:37 LCHENG (Rec: 10/07/17 12:50 LCHENG [email or web address]) Nutritional Asmnt/Malnutrition Patient General Information Nutritional Screening High Risk Consult Diagnosis PNA, elevated troponin, leukocytosis Pertinent Medical Hx/Surgical Hx HTN, DM, dementia, BPH, HIV Subjective Information Consult received for low dian score. Pt seen awake, not able to talk during the time of visit. PRODUCT SUPPORT REPRESENTATIVE was feeding pt lunch. Pt appeared not able to chew regular texture food. RN Florinda recommend purreed diet and will change the diet order. Per RN, pt only had few cream of wheat this morning. pt has teeth noted, appeared mild mucle wasting on chest. Current Diet Order/ Nutrition Support low sodium 2gm Pertinent Medications levauin Pertinent Labs 10/07 Na 135L, K 3.3, Glu 96 10/06 Na 135L, Glu 130H, Alb 2 .5L Nutritional Hx/Data Height 1.68 m Height (Calculated Centimeters) 167.6 Current Weight (lbs) 50.122 kg Weight (Calculated Kilograms) 50.1 Weight (Calculated Grams) 27297.0 [place] Body Weight 148 % [place] Body Weight 75 Body Mass Index (BMI) 17.8 Weight Status Underweight GI Symptoms GI Symptoms None Last BM 10/07 Difficult in: Chewing Usual diet at home not able to obtain Skin Integrity/Comment: pressured area on coccyx, skin loose, dry and blackened Estimated Nutritional Goals BEE in Kcals: Using Current wt Calories/Kcals/Kg 35-40 Kcals Calculated 9332-5532 Protein: Using Current wt Protein g/k.5 Protein Calculated 75 Fluid: ml 5410-9046 Nutritional Problem 2. Problem Problem increased nutrition needs ( calorie and protein0 Etiology increased metabolic demand Signs/Symptoms: dx of HIV, PNA 1. Problem Problem chewing difficulty Etiology ?weakness, ?mental status Signs/Symptoms: not able chewing regular texture food and possible need for pureed diet Malnutrition Alert Protein-Calorie Malnutrition N/A Is there a minimum of two criteria No selected? Query Text:Check all the applicable criteria. A minimum of two criteria are recommended for diagnosis of either severe or non-severe malnutrition. Intervention/Recommendation Comments 1. Recommend pureed [place] diet d /t chewing difficulty. RN will modify diet order. 2. Monitor PO intake, wt weekly, skin integrity and labs 3. If PO intake continue to be low, will consider nutrition supplements to increase calorie and protein intake 4. F/U as high risk in 2-3 days, 10/09-10/10 Expected Outcomes/Goals Expected Outcomes/Goals 1. Pt will tolerated pureed diet and PO intake at least 50 % 2. wt stability, skin to remain intact, labs to improve
[2017-10-12 13:52] LABS: RBC RETICULOCYTE COUNT 2.31 Mil/cmm; RETICULOCYTES % COUNTED 2.3 % (0.5-1.5)
--- NOTE | 2017-10-12 14:34 | General Progress Note ---
Subjective - Review of Systems Events since last encounter: no change no fever Objective - Results Result Diagrams: 10/12/17 12:25 10/12/17 04:49 Recent Labs: Laboratory Last Values WBC 6.9 Th/cmm (4.8-10.8) D 10/12/17 04:49 RBC 2.31 Mil/cmm (3.80-5.80) L 10/12/17 04:49 Hgb 7.9 gm/dL (12-16) L* D 10/12/17 04:49 Hct 23.0 % (40.0-54.0) L* 10/12/17 12:25 MCV 99.8 fl (80-99) H 10/12/17 04:49 MCH 34.1 pg (27.0-31.0) H 10/12/17 04:49 MCHC Differential 34.2 pg (28.0-36.0) 10/12/17 04:49 RDW 16.9 % (11.5-20.0) 10/12/17 04:49 Plt Count 210 Th/cmm (150-400) 10/12/17 04:49 MPV 6.7 fl 10/12/17 04:49 Neutrophils % 87.7 % (40.0-80.0) H 10/12/17 04:49 Band Neutrophils % 7 % (0-10) 10/11/17 04:50 Lymphocytes % 5.4 % (20.0-50.0) L 10/12/17 04:49 Monocytes % 4.8 % (2.0-10.0) 10/12/17 04:49 Eosinophils % 1.9 % (0.0-5.0) 10/12/17 04:49 Basophils % 0.2 % (0.0-2.0) 10/12/17 04:49 Neutrophils (Manual) 79 % (40-80) 10/11/17 04:50 Lymphocytes 10 % (20-50) L 10/11/17 04:50 Monocytes 3 % (2-10) 10/11/17 04:50 Eosinophils 1 % (0-5) 10/11/17 04:50 Basophils 0 % (0-3) 10/06/17 18:47 Platelet Estimate ADEQUATE (NORMAL) 10/11/17 04:50 Platelet Morphology NORMAL (NORMAL) 10/06/17 18:47 Anisocytosis 1+ 10/11/17 04:50 RBC Morph Micro Appear NORMAL (NORMAL) 10/06/17 18:47 Total Retics Counted 2.3 % (0.5-1.5) H 10/12/17 12:25 Absolute Retic 53.1 Th/cmm 10/12/17 12:25 Corrected Retic Count 1.2 % (0.5-1.5) 10/12/17 12:25 PT 10.8 SECONDS (9.5-11.5) 10/06/17 18:47 INR 1.04 (0.5-1.4) 10/06/17 18:47 Sodium 137 mEq/L (136-145) 10/12/17 04:49 Potassium 4.1 mEq/L (3.5-5.1) 10/12/17 04:49 Chloride 109 mEq/L (98-107) H 10/12/17 04:49 Carbon Dioxide 22.7 mEq/L (21.0-31.0) 10/12/17 04:49 Anion Gap 9.4 (7.0-16.0) 10/12/17 04:49 BUN 32 mg/dL (7-25) H 10/12/17 04:49 Creatinine 0.8 mg/dL (0.7-1.3) 10/12/17 04:49 Est GFR ( Amer) > 60.0 ml/min (>90) 10/12/17 04:49 Est GFR (Non-Af Amer) > 60.0 ml/min 10/12/17 04:49 BUN/Creatinine Ratio 40.0 10/12/17 04:49 Glucose 92 mg/dL (70-105) 10/12/17 04:49 Whole Bld Lactic Acid 0.98 mmol/L (0.60-1.99) 10/06/17 18:47 Calcium 8.9 mg/dL (8.6-10.3) 10/12/17 04:49 Total Bilirubin 0.3 mg/dL (0.3-1.0) 10/12/17 04:49 AST 56 U/L (13-39) H 10/12/17 04:49 ALT 50 U/L (7-52) 10/12/17 04:49 Alkaline Phosphatase 104 U/L (34-104) 10/12/17 04:49 Lactate Dehydrogenase 234 U/L (140-271) 10/12/17 12:25 Creatine Kinase 119 U/L (30-223) 10/07/17 10:00 Troponin I 0.04 ng/mL (0.01-0.05) 10/07/17 10:00 B-Natriuretic Peptide 215.0 pg/mL (5.0-100.0) H 10/07/17 07:11 Total Protein 5.3 gm/dL (6.0-8.3) L 10/12/17 04:49 Albumin 2.1 gm/dL (4.2-5.5) L 10/12/17 04:49 Globulin 3.2 gm/dL 10/12/17 04:49 Albumin/Globulin Ratio 0.7 (1.0-1.8) L 10/12/17 04:49 Triglycerides 74 mg/dL (<150) 10/06/17 18:47 Cholesterol 94 mg/dL (<200) 10/06/17 18:47 LDL Cholesterol Direct 56 mg/dL (75-193) L 10/06/17 18:47 HDL Cholesterol 29 mg/dL (23-92) 10/06/17 18:47 TSH 1.17 uIU/ml (0.34-5.60) 10/07/17 07:11 Urine Source CATH 10/06/17 18:00 Urine Color YELLOW 10/06/17 18:00 Urine Clarity CLEAR (CLEAR) 10/06/17 18:00 Urine pH 5.5 (4.6 - 8.0) 10/06/17 18:00 Ur Specific [place] 1.025 (1.005-1.030) 10/06/17 18:00 Urine Protein 30 mg/dL (NEGATIVE) H 10/06/17 18:00 Urine Glucose (UA) NEGATIVE mg/dL (NEGATIVE) 10/06/17 18:00 Urine Ketones NEGATIVE mg/dL (NEGATIVE) 10/06/17 18:00 Urine Blood SMALL (NEGATIVE) H 10/06/17 18:00 Urine Nitrate NEGATIVE (NEGATIVE) 10/06/17 18:00 Urine Bilirubin NEGATIVE (NEGATIVE) 10/06/17 18:00 Urine Urobilinogen 0.2 E.U./dL (0.2 - 1.0) 10/06/17 18:00 Ur Leukocyte Esterase NEGATIVE (NEGATIVE) 10/06/17 18:00 Urine RBC 0-2 /hpf (0-5) H 10/06/17 18:00 Urine WBC 0-2 /hpf (0-5) 10/06/17 18:00 Ur Epithelial Cells NONE SEEN /lpf (FEW) 10/06/17 18:00 Urine Bacteria FEW /hpf (NONE SEEN) 10/06/17 18:00 Absolute CD4 Count SEE REF. LAB REPORT 10/07/17 10:00 HIV 1&2 Antibody Screen POSITIVE (NEG) H 10/07/17 07:11 HIV (1&2) Ab Confirm SEE REF. LAB REPORT 10/07/17 10:00 Blood Type O POSITIVE 10/12/17 12:25 Antibody Screen NEGATIVE 10/12/17 12:25 Crossmatch See Detail 10/12/17 12:25 - Physical Exam Vitals and I&O: Vital Signs Temp 98.3 F 10/12/17 12:00 Pulse 99 10/12/17 12:18 Resp 14 10/12/17 12:00 BP 123/61 10/12/17 12:18 Pulse Ox 99 10/12/17 12:00 Intake & Output 10/11/17 10/12/17 10/12/17 18:59 06:59 18:59 Intake Total 450 200 Output Total 650 700 Balance -200 -500 Weight (lbs) 45.813 kg 45.813 kg Intake: Intake, IV Amount 100 Levofloxacin 500mg/100mL 100 500 mg In 100 ml @ 100 mls/hr IV Q24HR [facility] Rx#: [id number] Oral 350 200 Output: Urine 650 700 Active Medications: Current Medications Acetaminophen (Tylenol) 650 mg PO Q6H PRN PRN Reason: fever/pain Stop: 12/05/17 22:31 Azithromycin (Zithromax) 625 mg PO DAILY [facility] Stop: 12/07/17 08:59 Last Admin: 10/12/17 08:58 Dose: 625 mg Ethambutol HCl (Myambutol) 800 mg PO DAILY [facility] Stop: 12/12/17 08:59 Finasteride (Proscar) 5 mg PO DAILY [facility] PRN Reason: Protocol Stop: 12/06/17 08:59 Last Admin: 10/12/17 08:25 Dose: 5 mg Hydralazine HCl (Apresoline) 25 mg PO Q8HR [facility] Stop: 12/05/17 22:31 Last Admin: 10/12/17 12:18 Dose: 25 mg Levofloxacin (Levaquin Pb) 500 mg in 100 mls @ 100 mls/hr IV Q24HR [facility] Stop: 12/10/17 17:59 Last Infusion: 10/11/17 18:30 Dose: Infused Losartan Potassium (Cozaar) 75 mg PO BID [facility] Stop: 12/06/17 08:59 Last Admin: 10/12/17 08:24 Dose: 75 mg Miscellaneous (Dolutegravir Sodium [Tivicay]) 1 tab PO DAILY [facility] Stop: 12/06/17 08:59 Miscellaneous (Probiotic Screen) 1 [facility] PRN PRN PRN Reason: PROTOCOL Stop: 12/08/17 11:05 Pantoprazole Sodium (Protonix) 40 mg PO DAILY [facility] Stop: 12/06/17 08:59 Last Admin: 10/12/17 08:24 Dose: 40 mg Epivir (Lamivudine) (150mg Tab) 1 PO DAILY [facility] Stop: 12/06/17 08:59 Last Admin: 10/12/17 09:00 Dose: Not Given Patient Own Med ( Abacavir/Ziagen - 300mg/Tab) 2 PO DAILY [facility] Stop: 12/08/17 08:59 Last Admin: 10/12/17 08:26 Dose: 2 Sucralfate (Carafate) 1 gm PO QID [facility] Stop: 12/06/17 08:59 Last Admin: 10/12/17 12:19 Dose: 1 gm Trimethoprim/Sulfamethoxazole (Bactrim Ds) 2 tab PO TID [facility] Stop: 12/06/17 09:14 Last Admin: 10/12/17 08:26 Dose: 2 tab General: No acute distress HEENT: Atraumatic Neck: Thyromegaly - Procedures Procedures: Procedures Procedure Code Date ARTERIAL BLD GAS MEASURE 89.65 03/18/95 ELECTROCARDIOGRAM 89.52 03/18/95 NEBULIZER THERAPY 93.94 03/18/95 OXYGEN ENRICHMENT NEC 93.96 03/18/95 Assessment/Plan - Problem List Patient Problems: All Active Problems COUGH WITH CONGESTION AND FEVER (Acute) - Plan Plan: cpm Nutritional Asmnt/Malnutr-PDOC - Dietary Evaluation Malnutrition Findings (Please click <Entered> for more info): Nutritional Asmnt/Malnutrition Start: 10/07/17 12: 37 Text: Status: Complete Freq: Document 10/07/17 12:37 REBECA (Rec: 10/07/17 12:50 LCMICHAEL [email or web address]) Nutritional Asmnt/Malnutrition Patient General Information Nutritional Screening High Risk Consult Diagnosis PNA, elevated troponin, leukocytosis Pertinent Medical Hx/Surgical Hx HTN, DM, dementia, BPH, HIV Subjective Information Consult received for low dian score. Pt seen awake, not able to talk during the time of visit. FLOORWORKER LASTING was feeding pt lunch. Pt appeared not able to chew regular texture food. RN Folrinda recommend purreed diet and will change the diet order. Per RN, pt only had few cream of wheat this morning. pt has teeth noted, appeared mild mucle wasting on chest. Current Diet Order/ Nutrition Support low sodium 2gm Pertinent Medications levauin Pertinent Labs 10/07 Na 135L, K 3.3, Glu 96 10/06 Na 135L, Glu 130H, Alb 2 .5L Nutritional Hx/Data Height 1.68 m Height (Calculated Centimeters) 167.6 Current Weight (lbs) 50.122 kg Weight (Calculated Kilograms) 50.1 Weight (Calculated Grams) 14349.0 [place] Body Weight 148 % [place] Body Weight 75 Body Mass Index (BMI) 17.8 Weight Status Underweight GI Symptoms GI Symptoms None Last BM 10/07 Difficult in: Chewing Usual diet at home not able to obtain Skin Integrity/Comment: pressured area on coccyx, skin loose, dry and blackened Estimated Nutritional Goals BEE in Kcals: Using Current wt Calories/Kcals/Kg 35-40 Kcals Calculated 0611-3393 Protein: Using Current wt Protein g/k.5 Protein Calculated 75 Fluid: ml 2522-5123 Nutritional Problem 2. Problem Problem increased nutrition needs ( calorie and protein0 Etiology increased metabolic demand Signs/Symptoms: dx of HIV, PNA 1. Problem Problem chewing difficulty Etiology ?weakness, ?mental status Signs/Symptoms: not able chewing regular texture food and possible need for pureed diet Malnutrition Alert Protein-Calorie Malnutrition N/A Is there a minimum of two criteria No selected? Query Text:Check all the applicable criteria. A minimum of two criteria are recommended for diagnosis of either severe or non-severe malnutrition. Intervention/Recommendation Comments 1. Recommend pureed [place] diet d /t chewing difficulty. RN will modify diet order. 2. Monitor PO intake, wt weekly, skin integrity and labs 3. If PO intake continue to be low, will consider nutrition supplements to increase calorie and protein intake 4. F/U as high risk in 2-3 days, 10/09-10/10 Expected Outcomes/Goals Expected Outcomes/Goals 1. Pt will tolerated pureed diet and PO intake at least 50 % 2. wt stability, skin to remain intact, labs to improve
[2017-10-12] MEDS ORDERED: Probiotic Screen MC PRN (14:59)
[2017-10-12] MEDS ORDERED: LAMIVUDINE 150 MG PO SCH (17:00)
[2017-10-12] MEDS: Levofloxacin 500mg/100mL 500 MG/100 ML BAG IV SCH (18:34)
[2017-10-12] MEDS ORDERED: NORVIR 100 MG PO SCH (21:00)
[2017-10-12] MEDS ORDERED: PREZISTA 600 MG PO SCH (21:00)
[2017-10-13] MEDS ORDERED: LAMIVUDINE 150 MG PO SCH (09:00)
[2017-10-13 12:12] LABS: FERRITIN 1941 ng/mL (30-400); FOLIC ACID 18.2 ng/mL (>3.0); IRON SATURATION 54 % (15-55); TIBC (LC) 123 ug/dL (250-450); UIBC 56 ug/dL (111-343)
== END 2017-10-12 20:20 | DRG 974 ==
LOC: ER 17:44 → TELE 21:02 → ICU 10-11 08:15 → TELE 10-12 18:13
PROVIDERS: ADMIT Internal Medicine; ATTEND Internal Medicine
PROC: 30233N1 Transfusion of Nonautologous Red Blood Cells into Peripheral Vein, Percutaneous Approach (ICD-10-PCS; principal; 2017-10-12)
DX: B20 Human immunodeficiency virus [HIV] disease (principal); A41.9 Sepsis, unspecified organism; L89.153 Pressure ulcer of sacral region, stage 3; F03.90 Unspecified dementia, unspecified severity, without behavioral disturbance, psychotic disturbance, mood disturbance, and anxiety; G91.9 Hydrocephalus, unspecified; E46 Unspecified protein-calorie malnutrition; A04.8 Other specified bacterial intestinal infections; R64 Cachexia; J18.1 Lobar pneumonia, unspecified organism; Z68.1 Body mass index [BMI] 19.9 or less, adult; D63.8 Anemia in other chronic diseases classified elsewhere; I50.9 Heart failure, unspecified; E11.9 Type 2 diabetes mellitus without complications; I11.0 Hypertensive heart disease with heart failure; R22.0 Localized swelling, mass and lump, head; G56.00 Carpal tunnel syndrome, unspecified upper limb; I34.0 Nonrheumatic mitral (valve) insufficiency; N40.0 Benign prostatic hyperplasia without lower urinary tract symptoms; Z88.0 Allergy status to penicillin; Z83.3 Family history of diabetes mellitus; Z82.49 Family history of ischemic heart disease and other diseases of the circulatory system; Z79.899 Other long term (current) drug therapy
CPT/HCPCS: 36415-UA; 70450-TC; 71010-TC; 80048-TC; 80053-TC; 80061-TC; 81001-TC; 82550-TC; 82607-90; 82728-90; 82746-90; 83540-90; 83550-90; 83605; 83615-TC; 83880-TC; 84443-TC; 84484-TC; 85007-TC; 85027-TC; 85044-TC; 85610-TC; 86361-90; 86689-90; 86703-TC; 86850-TC; 86900-TC; 86901-TC; 86922-TC; 87070; 87070-90; 87086-90; 93005; 94760; J1940; J1956; J3480; J7030; P9016; Z7610